=== PATIENT | male | born 1950 | race Caucasian/White ===

== ENCOUNTER → 2017-03-11 | Outpatient (CLI) | payer BC ==
[~2017-03-11] MED LIST: ALL300 PO; AMR2 PO; ASPEC325 PO; CINNAMON; EZET10TA63 PO; FLX10 PO; GLC500 PO; LISI10TA PO; OMEG10007 PO; OXYSR20 PO; SIMV40TA2 PO
[2017-03-11 16:56] LABS: ALT/SGPT 26 U/L (12-78); BLOOD UREA NITROGEN 18 mg/dl (7-18); BUN/CREATININE RATIO 15.3 (10-20); CALCIUM 9.2 mg/dl (8.5-10.1); CARBON DIOXIDE 28 mmol/L (21-32); CHLORIDE 105 mmol/L (98-107); CHOLESTEROL 144 mg/dl (0-200); GLUCOSE 193 mg/dl (70-99); POTASSIUM 3.8 mmol/L (3.5-5.1); SODIUM 138 mmol/L (136-145); TRIGLYCERIDES 87 mg/dl (0-150); VERY LOW DENSITY LIPOPROT CALC 17 mg/dl
[2017-03-11 16:59] LABS: ALB/GLOB RATIO 1.1 (0.9-2); ALKALINE PHOSPHATASE 68 U/L (45-117); AST/SGOT 11 U/L (15-37); CHOLESTEROL/HDL RATIO 2.5; HDL CHOLESTEROL 57 mg/dl; LDL CHOLESTEROL CALCULATED 70 mg/dl
[2017-03-12 07:48] LABS: ESTIMATED AVERAGE GLUCOSE 174 mg/dl; HA1C FLAG Normal (Normal)
--- NOTE | 2017-03-18 11:28 | CODING QUERY MEDICAL NECESSITY ---
CQSUPPORTING DIAGNOSIS NEEDED A supporting diagnosis is required for the test/procedure performed on this patient in order for us to be reimbursed by the patient's insurance. Please provide a supporting diagnosis for the following test/procedure listed below next to the test name along with your signature. *If there is no additional diagnosis for this patient that would support the following test/procedure please document that below next to the test/procedure. Test(s)/Procedure(s) that require a supporting diagnosis: DOS 03/11/17 GLYCATED HEMOGLOBIN TEST Provider Signature: Date: Thank you Maria Gu[facility] Information Management Once completed, please kindly fax back to [phone] For questions please call [phone]
== END | disposition home or self-care (01) ==
LOC: C.LAB1850 15:58
PROVIDERS: ATTEND Nurse Practitioner Adult Health
DX: E78.5 Hyperlipidemia, unspecified (principal); E11.8 Type 2 diabetes mellitus with unspecified complications

== ENCOUNTER → 2017-03-17 | Outpatient (CLI) | payer BC ==
--- NOTE | 2017-03-17 11:21 | DIAGNOSTIC IMAGING REPORT ---
CERVICAL SPINE 2 OR 3 VIEWS CLINICAL HISTORY: Burning sensation of skin. Bilateral upper extremity burning sensation. COMPARISON STUDY: No previous studies for comparison. FINDINGS: There is slight reversal of the normal cervical lordosis. Alignment is otherwise anatomic. Vertebral body heights are maintained. There is moderate to marked disc space narrowing at C5-C6 with moderate disc space narrowing at C4-C5 and C6-C7. There is moderate multilevel facet arthrosis. Chronic deformity of several spinous processes is incidentally noted. IMPRESSION: 1. No cervical spine fracture. 2. Moderate multilevel facet arthrosis and moderate to severe multilevel degenerative disc disease of the cervical spine, most pronounced at C5-C6. Electronically signed by: Ryan Cheng M.D. 03/17/2017 11:20 AM Dictated Date/Time: 03/17/2017 11:18 AM
== END | disposition home or self-care (01) ==
LOC: C.RAD1850 10:51
PROVIDERS: ATTEND Family Medicine
DX: R20.8 Other disturbances of skin sensation (principal); M50.322 Other cervical disc degeneration at C5-C6 level

== ENCOUNTER → 2017-05-26 | Outpatient (CLI) | payer BC ==
--- NOTE | 2017-05-26 11:09 | DIAGNOSTIC IMAGING REPORT ---
R SHOULDER MIN 2 VIEWS ROUTINE, L SHOULDER MIN 2 VIEWS ROUTINE HISTORY: 67 years-old Male M25.511 Chronic pain of both [id number] chronic bilateral shoulder pain COMPARISON: Chest radiograph 05/05/2011 TECHNIQUE: 3 views of the bilateral shoulders FINDINGS: RIGHT: Moderate glenohumeral osteoarthritis with joint space remodeling. Spurring with subchondral sclerosis and subcortical cystic changes are noted involving the greater tuberosity. There is mild to moderate marginal spurring of the AC joint. No acute fracture or dislocation. LEFT: 7 mm linear bone fragment is noted adjacent to the distal clavicle and the AC joint region suggesting chondrocalcinosis or fragmented osteophyte. Mild to moderate acromioclavicular and mild glenohumeral osteoarthritis. There is mild spurring and subcortical cystic change of the greater tuberosity. Lung modi are clear. IMPRESSION: 1. No acute fracture or dislocation of the left or right shoulder. 2. Degenerative changes are seen bilaterally as above, most pronounced within the right glenohumeral joint where there is moderate disease. The above report was generated using voice recognition software. It may contain grammatical, syntax or spelling errors. Electronically signed by: Josue Hussein M.D. 05/26/2017 11:08 AM Dictated Date/Time: 05/26/2017 11:05 AM
== END | disposition home or self-care (01) ==
LOC: C.RAD1850 10:40
PROVIDERS: ATTEND Neuromusculoskeletal Medicine & OMM
DX: M25.511 Pain in right shoulder (principal); M25.512 Pain in left shoulder

== ENCOUNTER → 2017-06-12 | Outpatient (CLI) | payer BC ==
[~2017-06-12] VITALS: Ht 190.5 cm; Wt 105.4 kg
[~2017-06-12] MED LIST changes: +BUPIVACAINE/EPINEPHRINE 0.5% MPF 1:200,000 30 ML VIAL ONE; +EpINEphrine HCL INJ 1 MG/ML 5ML SYRINGE ONE; +HYDROmorphone INJ 1 MG/ML SYR ONE
[2017-06-12 13:02] VITALS: BP 117/83; PULSE 74; Ht 190.5 cm; Wt 105.4 kg
== END | disposition home or self-care (01) ==
LOC: C.NEUR 12:23
PROVIDERS: ATTEND Internal Medicine Pulmonary Disease
DX: R53.83 Other fatigue (principal); R06.83 Snoring; R06.81 Apnea, not elsewhere classified

== ENCOUNTER → 2017-07-18 | Outpatient (CLI) | payer BC ==
[~2017-07-18] MED LIST changes: -BUPIVACAINE/EPINEPHRINE 0.5% MPF 1:200,000 30 ML VIAL ONE; -EpINEphrine HCL INJ 1 MG/ML 5ML SYRINGE ONE; -HYDROmorphone INJ 1 MG/ML SYR ONE
--- NOTE | 2017-07-19 06:44 | PAP/PSG TECHNICIAN REPORT ---
[facility] Bill Collector Polysomnogram Report Study name: None Report date: 07/19/2017 Study date: 07/18/2017 Referring Physician: Stan Owens M.D. Name: JAIDEN SPRINGER Interpreting Physician: Stan Owens M.D. Date of : 1950 Bill Collector: Canid Garner RPSGT. Sex: Male Age: 67 StudyType: PSG Weight: 232.3 lbs Height: 67 years, Height 6' 3" Neck Circum:17INCHES BMI: 29.03 Medications: Allopurinol 300mg, ASA 325mg, Atorvastatin 20mg, Ipratropium [place] 0.03% nasal solution, Ketoconazole 2% cream, Lantus Solostar 100 unit/ml, Metformin HCl 1000mg, Mucinex 600mg, Novolog Flex pen 100unit/ml, Triamcinolone Acetonide 55mcg/act nasal spray, Viagra 50mg, Vit B-12, Vit D 2000unit Patient History Study started on room air with no ETCO2 monitoring in room #8. 67 yr old male here tonight for a possible split psg if his AHI=15 with two hours of sleep. He snores and has witnessed apnea. He never feels rested. His ESS=7/24. His neck circ=17inches Parameters Monitored NPSG: E1-M2, E2-M1, Fp1-M2, Fp2-M1, F3-M2, F4-M2, F4-M1, C3-M2, C4-M2, C4-M1, O1-M2, O2-M2, O2-M1, T3-M2, T4-M1, P3-M2, P4-M1, CHIN1, CHIN2, HR, EKG, Legs, PFLOW, SNOR, FLOW, CFLOW, Tidal Volume, THOR, ABDO, SpO2, PLTH, CPRESS, ETCO2 Wave, ETCO2, pH Sleep Architecture Sleep Stages Time at Lights Off 9:47:15 PM STAGES Time (min.) TST (%) Time at Lights On 5:36:15 AM Wake 108.0 -- Total Recording Time (TRT) 469.00 min. N1 34.0 9 Total Sleep Period (TSP) 450.5 min. N2 205.0 57 Total Sleep Time (TST) 361.0min. N3 33.0 9 Awake Time 108.0 min. REM 89.0 25 Wake after Sleep Onset 89.5 min. Sleep Efficiency (SE) 77 % Sleep Onset Latency (SHAYY) 18.5 min. Number of Stage 1 Shifts None Awakenings 20 Stage Changes 93 Number of REM periods 11 REM 89.0 25 REM Latency 42.5 min. NREM 272.0 75 Body Position Analysis Supine Right Left Side Prone Vertical Total Sleep Time (min.) 218.1 123.5 96.2 219.75 0.0 0.0 Total Sleep Time (%) 39% 34% 27% 61 0% N/A% Total Sleep Time REM (min.) 15.0 22.5 51.5 None 0.0 0.0 Total Sleep Time NREM (min.) 126.3 101.0 44.7 None 0.0 0.0 Intermittent Wake (min.) 76.8 19.2 12.0 None 0.0 0.0 Total Sleep Period (%) 44% None None None None None Arousals Myoclonus (PLM) * Events Count Index Events Count Index Spontaneous 18 3 Events Awake (PLMW) 75 41.7 Respiratory 8 1.3 Events Asleep w/ Arousal (PLMA) 5 0.8 PLM 5 1 Events Asleep w/o Arousal (PLMS) 69 11.5 Snoring 1 0 Total Asleep 74 12.3 Total 32 5 Total 149 19 Respiratory Analysis * CA OA MA CH H RERA Total Count 1 0 0 0 39 0 40 Index 0.2 0.0 0.0 0 6.5 0 6.6 Mean Duration 15.6 0.0 0.0 0.00 33.6 0.0 33.2 Longest Duration 15.6 0.0 0.0 0.00 0.0 0.0 58.5 Respiratory Event Summary Total Supine ~Supine Right Left Prone REM NREM Apneas Count 1 0 1 0 1 N/A 1 0 Index 0.2 0 0 0.0 0.6 N/A 1 0 Hypopneas (4% Desat) Count 39 34 5 2 3 N/A 17 22 Index 6.5 14.4 1 1.0 1.9 N/A 11.5 4.9 Apneas & All Hypopneas Count 40 34 6 2 4 N/A 18 22 Index 6.6 14 2 1 2 N/A 12.1 4.9 Respiratory Events (Facility Attendant+All Hyp+RERA) Count 40 34 6 2 4 N/A 18 22 Index 6.6 14 2 1.0 2.5 N/A 12.1 4.9 Respiratory Related Arousal Count 8 34 0 0 0 N/A 2 6 Index 1.3 3 0 0 0 N/A 1 1 Snoring Analysis Supine Right Left Prone REM NREM Total Snore duration 1.1 min Snores count 50 3 2 N/A 11 44 55 Snore mean duration 1.2 Sec Snores index 21 1 1 N/A 7.4 9.7 9.1 TST with snoring (%) 0.3% Desaturation Event Summary: Minimum %SpO2 Event Count Mean/Min/Max Duration(sec.) Desaturation Index % Time In Bed > 90 41 32.5 / 12.0 / 60.0 55.0 9.6 86 - 90 61 30.4 / 8.5 / 60.0 9.0 87.4 81 - 85 0 N/A 0.0 2.8 76 - 80 0 N/A 0.0 0.2 71 - 75 0 N/A 0.0 0.0 66 - 70 0 N/A 0.0 0.0 61 - 65 0 N/A 0.0 0.0 56 - 60 0 N/A 0.0 0.0 51 - 55 0 N/A 0.0 0.0 < 50 0 N/A 0.0 0.0 Total REM NREM Awake <50% 0.0 min. 0.0 min. 0.0 min. 0.0 min. 51 - 60% 0.0 min. 0.0 min. 0.0 min. 0.0 min. 61 - 70% 0.0 min. 0.0 min. 0.0 min. 0.0 min. 71 - 80% 0.8 min. 0.2 min. 0.6 min. 0.1 min. 81 - 90% 419.3 min. 87.1 min. 263.3 min. 69.0 min. 91 - 100% 44.7 min. 1.7 min. 6.5 min. 36.5 min. Average 88 88 88 90 Minimum SpO2 78 79 78 78 Desaturation Event Index 9.3 14.2 6.0 15.0 # Desat. Events below 89% 69 21 25 23 Time(%) with Saturation below 89% 63.3 13.1 43.5 6.7 Time(min.) with Saturation below 89% 294.3 61.0 202.3 31.0 Time (mins) REM (mins) NREM (mins) % of TST SpO2 Below 90% 47 21 N26 91.3 SpO2 Below 88% 23 0 0 35 Heart Rate Analysis Min (bpm) Max (bpm) Average (bpm) Awake 53 188 66 NREM 51 84 64 REM 53 81 61 Overall 51 84 64 Supplemental O2 Values Minimum O2 level: None Value Start Time End Time Bill Collector Comments Mr. Springer slept in the right, left and supine positions. Cardiac arrhythmia and some limb movements were noted, please see print outs. No bruxism noted. Snoring was noted and scored as a 2 on a scale of 1 through 5. (0=no snoring, 5=snoring loud enough to be heard through a closed door or down the guallpa way) He did not use the restroom during the night. At 12:21 am he qualified for a split night study per order with 2 hours of sleep and an AHI of 15. He was unable to tolerate the cpap and felt claustrophobic so the study was continued as a diagnostic psg. He stated that he slept a little worse than when at home. The final report will be interpreted and signed by a sleep physician. The completed physician report will then be placed in the patient medical record. Therapy (cm H2O) 0 TIB (min.) 469.0 TST (min.) 361.0 Sleep Onset (min.) 18.5 REM Onset From Sleep (min.) 42.5 Sleep Efficiency % 77 Wakefulness (%) 22 Wakefulness (min.) 108.0 NREM 1 (%) 9 NREM 1 (min.) 34.0 NREM 2 (%) 57 NREM 2 (min.) 205.0 NREM 3 (%) 9 NREM 3 (min.) 33.0 REM (%) 25 REM (min.) 89.0 # Arousals 32 Arousal Index 5 # Snore 55 Snore Index 9.1 AHI 6.6 AHI Supine 14 AHI Non-Supine 2 NREM AHI 4.9 REM AHI 12.1 RDI 6.6 # Obstructive Apnea 0 # Central Apnea 1 # Mixed Apnea 0 # Hypopneas 39 RERAs 0 Total Respiratory Events 50 Time Below SpO2 89% (min.) 263.3 Mean NREM SpO2 (%) 88 Mean REM SpO2 (%) 88 Mean Sleep SpO2 (%) 88 Min NREM SpO2 (%) 78 Min REM SpO2 (%) 79 Position Supine (min.) 218.1 Position Non-supine (min.) 219.7 LM Index Sleep 12.3 LM Index NREM 10.1 LM Index REM 18.9 Mean Heart Rate (bpm) 64 Min Heart Rate (bpm) 51
--- NOTE | 2017-07-20 20:39 | POLYSOMNOGRAPH REPORT ---
CLINICAL DATA: A 67-year-old male with BMI of 29 referred by myself and Dr. Gonzalez for evaluation of fatigue, snoring and witnessed apneic episodes. SLEEP ARCHITECTURE: Total sleep period was 450.5 minutes. Total sleep time was 361 minutes divided between 272 minutes of non-REM sleep and 89 minutes of REM sleep. Sleep onset latency was 18.5 minutes. REM latency was foreshortened at 42.5 minutes. Sleep efficiency was reduced at 77%. Wake after sleep onset was 89.5 minutes. Sleep consisted of stage N1 9%, stage N2 57%, stage N3 9%, and REM 25%. AROUSAL DATA: 32 arousals were recorded for an index of 5 per hour. PLM DATA: 74 limb movements during sleep were noted for an index of 12.3 per hour. RESPIRATORY DATA: Mild sleep apnea was documented. The AHI was 6.6. There was 1 central apneic episode, 15.6 seconds in duration. There were 39 hypopneic episodes with a mean duration of 33.6 seconds. OXIMETRY DATA: Nocturnal hypoxemia was seen. Oxygen huan was 78% during REM. The mean saturation was 88%. Time below 88% was 23 minutes. EKG: Heart rates ranged from 51-84 beats per minute. Occasional PVCs were noted. SENIOR COMMERCIAL LOAN OFFICER'S COMMENTS: The patient slept in the right, left, and supine positions. Snoring was mild to moderate, rated 2 on a scale of 1-5. At 12:21 a.m. the patient qualified for a split night study with an AHI of 15 but was unable to tolerate CPAP and felt claustrophobic, so the study was continued as a diagnostic study. Majority of his hypopneic episodes occurred in the first 2 hours of sleep. IMPRESSION: Mild sleep apnea/hypopnea with an AHI of 6.6 with nocturnal hypoxemia. RECOMMENDATIONS: The patient may benefit from use of an oral appliance or weight loss if he cannot tolerate CPAP. Clinical correlation is needed. EDMAR
== END | disposition home or self-care (01) ==
LOC: C.NEUR 21:00
PROVIDERS: ATTEND Internal Medicine Pulmonary Disease
DX: G47.30 Sleep apnea, unspecified (principal); R53.83 Other fatigue; R06.83 Snoring

== ENCOUNTER → 2017-10-02 | Outpatient (CLI) | payer BC ==
[~2017-10-02] VITALS: Ht 190.5 cm; Wt 111.2 kg
[2017-10-02 14:04] VITALS: BP 120/85; PULSE 82; Ht 190.5 cm; Wt 111.2 kg
== END | disposition home or self-care (01) ==
LOC: C.NEUR 12:52
PROVIDERS: ATTEND Internal Medicine Pulmonary Disease
DX: G47.30 Sleep apnea, unspecified (principal)

== ENCOUNTER 2024-01-11 06:17 | Observation (INO) ==
--- NOTE | 2023-10-28 09:54 | Anesthesiology Consultation ---
Date of Service October 28, 2023 Assessment & Plan (1) Encounter for pre-operative examination: Chart Review Chart Review: Acceptable Risk for Surgery and Patient NOT seen in Pre Admission Testing Consults Requested none History Surgery Operation Date: 11/05/23 07:30 Proposed Procedures p Photoselective Vaporization of the Prostate Using the Greenlight Laser - Jose Hatfield, DO Height/Weight Height: 6 ft 3 in Weight: 98.43 kg Allergies Allergy/AdvReac Type Severity Reaction Status Date / Time indomethacin AdvReac Intermediate n/v Verified 10/23/23 13:43 Medications Home Medications Medication Instructions Recorded Confirmed Last Taken multivitamin with minerals (Men's 1 tab PO QAM 04/07/19 10/23/23 Unknown One Daily tablet) aspirin 325 mg tablet 325 mg PO QAM 04/27/19 10/23/23 Unknown allopurinol 300 mg tablet 300 mg PO QAM 05/02/19 10/23/23 Unknown metformin 1,000 mg tablet 1,000 mg PO BID 05/02/19 10/23/23 Unknown atorvastatin 10 mg tablet 10 mg PO HS 04/30/21 10/23/23 Unknown semaglutide 1 mg/dose (2 mg/1.5 2 mg subcut WK 04/30/21 10/23/23 Unknown mL) subcutaneous pen injector (Ozempic) tadalafil 5 mg tablet 5 mg PO DAILY PRN sexual activity 10/21/21 10/23/23 Unknown #30 tabs finasteride 5 mg tablet 5 mg PO HS 04/21/22 10/23/23 Unknown lisinopril 5 mg tablet 2.5 mg PO QAM 04/21/22 10/23/23 Unknown gabapentin 400 mg capsule 400 mg PO UD 04/29/22 10/23/23 Unknown blood-glucose meter,continuous #1 ea 01/16/23 09/18/23 Unknown cholecalciferol (vitamin D3) 25 1,000 units PO HS 10/23/23 10/23/23 Unknown mcg (1,000 unit) capsule famotidine 20 mg tablet (Pepcid) 20 mg PO DAILY PRN gerd 10/23/23 10/23/23 Unknown insulin glargine 100 unit/mL (3 22 unit subcut HS 10/23/23 10/23/23 Unknown mL) subcutaneous pen (Lantus Solostar U-100 Insulin) tamsulosin 0.4 mg capsule 0.4 mg PO HS 10/23/23 10/23/23 Unknown Past Medical History Medical History Hx of gout GERD (gastroesophageal reflux disease) Hiatal hernia Post traumatic stress disorder Hx of migraines Myocardial Infarction ? 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 name Mild sleep apnea cpap Obesity (BMI 30.0-34.9) Vitamin D deficiency Male erectile disorder of organic origin Past Family History Family History Mother Brain cancer Brother Bladder cancer Melanoma Father Myocardial infarction Other Cancer Coronary heart disease Diabetes No family history of adverse response to anesthesia Denies family history of Colon cancer Ovarian cancer Prostate cancer Breast cancer Past Surgical History Surgical History History of esophagogastroduodenoscopy (EGD) H/O foot surgery rt History of carpal tunnel release rt/left H/O elbow surgery left Hx of vasectomy History of colonoscopy History of appendectomy History of tooth extraction History of tonsillectomy History of nasal cauterization x 2 (Dr. Finley) H/O metal removed from eye History of cardiac cath no stents over 10 years ago>[facility] History of facial surgery jaw surgery>no locking History of knee replacement rt S/P shoulder replacement rt Social History Smoking Status: Never smoker Do You Dip or Chew Tobacco: No Hx Alcohol Use: Yes Alcohol type: beer alcohol intake frequency: 0-2 drinks per day Alcohol Intake Frequency Comment: 1 beer per day on average Hx Substance Use: No substance use type: does not use Testing Electrocardiogram Date: 07/10/23 Findings: + NSR @ possible anteroseptal infarct
[2024-01-11] MEDS: LR 15ML/HR IV SCH ×2 (06:45)
[2024-01-11] MEDS ORDERED: ONDANSETRON INJ 2 MG/ML 2 ML VIAL IV PRN (06:53)
[2024-01-11] MEDS ORDERED: fentaNYL citrate PF 100 MCG/2 ML VIAL IV PRN (06:53)
[2024-01-11] MEDS ORDERED: ATROPINE SULFATE 0.1 MG/ML 10ML SYR IV PRN (06:53)
[2024-01-11] MEDS ORDERED: ePHEDrine sulfate 50 MG/ML AMP IV PRN (06:53)
--- NOTE | 2024-01-11 07:06 | History & Physical Report ---
Date of Service January 11, 2024 Assessment & Plan (1) BPH with obstruction/lower urinary tract symptoms: Plan Risks and benefits discussed at length for procedure. These include bleeding, infection, injury to surrounding tissues or organs, and risks associated with anesthesia. Patient states understanding and agrees to proceed. Will sign consent and proceed. Plan for Greenlight Photovaporization of Prostate History of Present Illness Primary Care Provider: Bobbi Gonzalez MD Patient here for procedure. No changes in medical issues. No major changes in urinary issues. Continued issues and concerns. No change in pain or discomfort. No severe fevers or chills. No chest pain or shortness of breath. Risks and benefits discussed at length for procedure. These include bleeding, infection, injury to surrounding tissues or organs, and risks associated with anesthesia. Patient and/or family states understanding and agrees to proceed. Consent and supporting information completed. Allergies Allergy/AdvReac Type Severity Reaction Status Date / Time indomethacin AdvReac Intermediate n/v Verified 01/11/24 06:32 Home Medications Medication Instructions Recorded Confirmed Type multivitamin with minerals (Men's 1 tab PO QAM 04/07/19 01/11/24 History One Daily tablet) aspirin 325 mg tablet 325 mg PO QAM 04/27/19 01/11/24 History allopurinol 300 mg tablet 300 mg PO QAM 05/02/19 01/11/24 History metformin 1,000 mg tablet 1,000 mg PO BID 05/02/19 01/11/24 History atorvastatin 10 mg tablet 10 mg PO HS 04/30/21 01/11/24 History semaglutide 1 mg/dose (2 mg/1.5 2 mg subcut WK 04/30/21 01/11/24 History mL) subcutaneous pen injector (Ozempic) tadalafil 5 mg tablet 5 mg PO DAILY PRN sexual activity 10/21/21 01/11/24 Rx #30 tabs finasteride 5 mg tablet 5 mg PO HS 04/21/22 01/11/24 History lisinopril 5 mg tablet 2.5 mg PO QAM 04/21/22 01/11/24 History gabapentin 400 mg capsule 400 mg PO UD 04/29/22 01/11/24 History blood-glucose meter,continuous #1 ea 01/16/23 09/18/23 Rx cholecalciferol (vitamin D3) 25 1,000 units PO HS 10/23/23 01/11/24 History mcg (1,000 unit) capsule famotidine 20 mg tablet (Pepcid) 20 mg PO DAILY PRN gerd 10/23/23 01/11/24 History insulin glargine 100 unit/mL (3 22 unit subcut HS 10/23/23 01/11/24 History mL) subcutaneous pen (Lantus Solostar U-100 Insulin) tamsulosin 0.4 mg capsule 0.4 mg PO HS 10/23/23 01/11/24 History Past Med/Surg History Problem List (Updated 01/11/24 @ 07:05 by Jose Hatfield DO) BPH with obstruction/lower urinary tract symptoms Encounter for pre-operative examination Nocturnal hypoxia Peyronie's disease (Acute) Dyslipidemia (Acute) Medical History Hx of gout GERD (gastroesophageal reflux disease) Hiatal hernia Post traumatic stress disorder Hx of migraines Myocardial Infarction ? 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 name Mild sleep apnea cpap Obesity (BMI 30.0-34.9) Vitamin D deficiency Male erectile disorder of organic origin Surgical History History of esophagogastroduodenoscopy (EGD) H/O foot surgery rt History of carpal tunnel release rt/left H/O elbow surgery left Hx of vasectomy History of colonoscopy History of appendectomy History of tooth extraction History of tonsillectomy History of nasal cauterization x 2 (Dr. Finley) H/O metal removed from eye History of cardiac cath no stents over 10 years ago>[facility] History of facial surgery jaw surgery>no locking History of knee replacement rt S/P shoulder replacement rt Family History Mother Brain cancer Brother Bladder cancer Melanoma Father Myocardial infarction Other Cancer Coronary heart disease Diabetes No family history of adverse response to anesthesia Denies family history of Colon cancer Ovarian cancer Prostate cancer Breast cancer Social History Smoking Status: Never smoker Second Hand Exposure: No; Do You Dip or Chew Tobacco: No; Tobacco Cessation Education Requested by Patient: No Hx Alcohol Use: Yes Alcohol type: beer Alcohol Intake Frequency: 2-3 x/Week Hx Substance Use: No Preferred Language: Upper Sorbian Communication Ability: Effective Visual Impairment: No Limitations Hearing Ability: Hard of Hearing Warehouse Director Required: No Beliefs That Will Affect Care: None marital status: Current Living Situation: Spouse current occupational status: employed and retired current occupation: Self How many Children do You have: 2 Other Information That Helps Us Care for You: No Feels Safe at Home: Yes Safety Concerns: Feels Safe At This Time Childhood Exposure to Second-Hand Smoke: Yes Diet: regular caffeine: Yes during the past year weight has: remained stable Dental Care, Regularly: Yes Physical Activity Frequency: Daily Seatbelt Use: always Sunscreen Use: Yes Assistive Devices: CPAP, Glasses and Hearing Aid - Bilateral Assistive Devices Comment: reading/driving glasses Review of Systems All systems reviewed & are unremarkable except as noted in HPI & below Physical Exam Physical Exam: General: Alert/Arousable. No Acute illness. . HEENT: Inspection normal. Normal inspection of face. Normal inspection of neck. Psychologic: Normal affect/No change in mentation. Respiratory: No use of accessory muscles. No respiratory changes or exacerbation or changes with tachypnea or dyspnea. Cardiovascular: No tachycardia Skin: [place] and Dry. No new rashes or visible lesions. Abdomen: Normal inspection. No guarding. Results & Data Vital Signs (Past 12 Hours) Vital Signs Temp Pulse Resp BP Pulse Ox O2 Del Method 01/11/24 06:35 36.5 C 84 20 133/85 94 Room Air PG Care Time/CCT Total # of Minutes Spent Total Time Spent with Patient: Total time spent is greater than 50% in coordination of care (as documented) at patient's floor/unit and/or counseling patient: Coding Level of Care Code None Diagnoses BPH with obstruction/lower urinary tract symptoms N40.1; N13.8
[2024-01-11] MEDS ORDERED: MIDAZOLAM HCL 1 MG/ML 2ML VIAL ONE (08:26)
[2024-01-11] MEDS ORDERED: PROPOFOL IV EMULSION 10 MG/ML 20 ML VIAL IV ONE (08:26)
[2024-01-11] MEDS ORDERED: LIDOCAINE 2% 2 ML VIAL/AMP(20MG/ML) INFIL ONE (08:26)
[2024-01-11] MEDS ORDERED: fentaNYL citrate PF 100 MCG/2 ML VIAL ONE ×2 (08:26→10:13)
[2024-01-11] MEDS: ceFAZolin 2000MG 2,000 MG/15 ML SYR IV SCH ×2 (09:28→18:20)
[2024-01-11] MEDS ORDERED: PHENAZOPYRIDINE HCL 200 MG TAB PO PRN (09:33)
[2024-01-11] MEDS ORDERED: oxyCODONE/ACETAMINOPHEN 5mg/325mg TAB PO PRN (09:33)
[2024-01-11] MEDS ORDERED: MoRPHine SULFATE 2 MG/ML CARP IV PRN (09:33)
[2024-01-11] MEDS ORDERED: MAG SULFATE 50% 1GM/2ML VIAL IV ONE (09:37)
--- NOTE | 2024-01-11 10:58 | Operative Report ---
PG Post Operative Report Pre & Post Diagnosis Operation Date: 01/11/24 08:00 Pre-Op Diagnosis: Benign Prostatic Hyperplasia with Obstruction/Lower Urinary Tract Symptoms Post-Op Diagnosis: Benign Prostatic Hyperplasia with Obstruction/Lower Urinary Tract Symptoms I identified the patient and participated in the time-out.: Yes Procedure Operation Date: 01/11/24 08:00 Actual Procedures p Photoselective Vaporization of the Prostate and Enucleation of Prostate Using the Greenlight Laser(Not Applicable) - Jose Hatfield DO Surgeon Jose Hatfield, II, DO One Piece Expansion Maker Hand None Estimated Blood Loss 5 Findings Consistent with Post-Op Diagnosis Large Prostate with obstruction. Large median lobe enucleated. Bilateral Lateral lobe enlargement. 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 Drains 22Fr [address] Catheter Anesthesia Type General Complications none Disposition Disposition: Recovery Room Indications Patient with obstruction due to prostate enlargement. Risks and benefits discussed at length. Description of Procedure Patient was consented and brought back to the operating room. Patient was placed under anesthesia in the supine position and moved to the dorsal lithotomy position. Patient was prepped and draped in the regular sterile fashion. A time out was completed. A 30degree Cystoscope was placed into the bladder and the entire bladder was examined. The UO's were identified as well as the bladder neck, trigone, dome, and the other important landmarks. The prostatic urethra and large lobes/adenoma was assessed and the veru and bladder neck identified and area/size was assessed. The cystoscope with laser bridge and the Greenlight laser fiber were selected. Starting at the 5 and 7 o'clock positions, a channel was created from bladder neck to the veru. A channel was further formed between the two areas by enucleating the median lobe out from the 7 back to the 5 o'clock position. Adenoma pieces were enucleated and displaced into the bladder. No major bleeding or areas of concern. The resection then started at the 1 and 11 oclock positions and swept down to the channel vaporizing down to capsule fibers. All bleeding was controlled. The Specimen was removed and sent for analysis. The resection bed and any bleeding areas were fulgurated/cauterized and the entire area inspected. All bleeding was controlled. The bladder was inspected a final time. The bladder was emptied and irrigated. All specimen and debris was removed. The scope was removed with the bladder partially full. A catheter was placed and balloon elevated. This was easily irrigated. The patient was cleaned, aroused from anesthesia, and transferred to the pacu in stable condition having tolerated the procedure well with no complications. I was present and participated in all aspects of the procedure. The patient will be monitored in the PACU until transferred. Plan to monitor post op as observation. Will plan to remove catheter in 5-7 days. I attest to the content of the Intraoperative Record and any orders documented therein. Any exceptions are noted below.
[2024-01-11] MEDS ORDERED: DEXAMETHASONE SOD INJ 4 MG/ML VIAL ONE (10:59)
[2024-01-11] MEDS ORDERED: ONDANSETRON INJ 2 MG/ML 2 ML VIAL ONE (10:59)
[2024-01-11 11:28] LABS: Basophils # (auto) 0.06 K/uL (0.00-0.20); Basophils % (auto) 0.7 %; Eosinophils # (auto) 0.36 K/uL (0.00-0.50); Eosinophils % (auto) 4.4 %; Hematocrit (blood only) 44.1 % (42.0-52.0); Hemoglobin 14.6 g/dl (14.0-18.0); Immature Granulocytes # (auto) 0.05 K/uL (0.01-0.20); Immature Granulocytes % (auto) 0.6 %; Lymphocytes # (auto) 2.25 K/uL (1.20-3.40); Lymphocytes % (auto) 27.7 %; Mean Corpuscular Hemoglobin 29.1 pg (25.0-34.0); Mean Corpuscular Hgb Conc 33.1 g/dL (32.0-36.0); Mean Corpuscular Volume 87.8 fL (80.0-100.0); Mean Platelet Volume 11.1 fL (9.4-12.4); Monocytes # (auto) 0.44 K/uL (0.11-0.59); Monocytes % (auto) 5.4 %; Neutrophils # (auto) 4.96 K/uL (1.40-6.50); Neutrophils % (auto) 61.2 %; Platelet Count 249 K/uL (130-400); RDW Coefficient of Variation 13.5 % (11.5-14.5); RDW Standard Deviation 43.2 fL (36.4-46.3); Red Blood Count 5.02 M/uL (4.70-6.10); White Blood Count 8.12 K/ul (4.8-10.8)
[2024-01-11] MEDS ORDERED: ePHEDrine sulfate 50 MG/ML AMP ONE (11:37)
[2024-01-11 11:44] LABS: BUN Creatinine Ratio 17.1 (10-20); Creatinine Clr Calc Pharmacy 101.9 ml/min; Est GFR (African American) 104.2 ml/min; Est GFR (Non-African American) 89.9 ml/min; Potassium 4.7 mmol/L (3.5-5.1)
--- NOTE | 2024-01-11 12:10 | Anesthesiology Progress Note ---
Date of Service January 11, 2024 Anesthesia Post Procedure Vital Signs Vital Signs: Temp Pulse Pulse Resp BP Pulse Ox O2 Del Method 01/11/24 11:55 73 10 L 117/72 95 Nasal Cannula 01/11/24 11:45 36.5 C 74 12 109/79 94 Nasal Cannula 01/11/24 11:35 78 19 107/85 94 Nasal Cannula 01/11/24 11:25 83 14 119/70 93 Nasal Cannula 01/11/24 11:15 81 17 120/72 94 Room Air 01/11/24 11:07 36.0 C L 87 23 122/77 94 Room Air 01/11/24 06:35 36.5 C 84 20 133/85 94 Room Air O2 Flow Rate 01/11/24 11:55 2 01/11/24 11:45 2 01/11/24 11:35 2 01/11/24 11:25 2 01/11/24 11:15 01/11/24 11:07 01/11/24 06:35 Transfer of Care Handoff Completed per policy Notes Mental Status: alert / awake / arousable Patient Amnestic to Procedure: Yes Nausea / Vomiting: adequately controlled Pain: adequately controlled Airway Patency, RR, SpO2: stable & adequate BP & HR: stable & adequate Hydration State: stable & adequate Anesthetic Complications: no major complications apparent and Pt Satisfied with anesthetic care
[2024-01-11] MEDS ORDERED: PHARMACY GLYCEMIC MGMT CONSULT PRN (15:03)
--- NOTE | 2024-01-11 15:45 | Pharmacy Report ---
Pharmacy Glycemic Short Note 2 - Date of Service January 11, 2024 - Glycemic Short BSG Results (Last 24 hours): 01/11/24 01/11/24 01/11/24 06:35 11:10 11:14 Glucose 174 H POC Glucose 150 H 157 H 01/11/24 13:25 Glucose POC Glucose 179 H OUTPATIENT ANTIDIABETIC REGIMEN: * Lantus 22 units SC HS * Metformin * Semaglutide * HbA1c 8.7% on 10/19/23 ASSESSMENT: * 73 yo M w T2DM now POD #0 s/p prostate surgery who received IV dexamethasone periop. * Will slightly increase home Lantus dose x1 today 2nd steroids plus lower dose administered yesterday PM preop. Plan to change back to home regimen tomorrow PM * Will initiate Novolog in-lieu of home medications and dose slightly more aggressively than moderate stress estimate 2nd dexamethasone. Anticipate loosening tomorrow or the next day, based on trend in BSG's PLAN FOR INPATIENT GLYCEMIC CONTROL: * Hold outpatient oral diabetes medications * Basal insulin * Lantus 25 units SQ x1 now then 22 units HS ongoing * Bolus insulin * NovoLog per scale ACHS or Q6hrs while NPO * Goal Range: Low 110 mg/dL - High 140 mg/dL * Correction Factor: 20 mg/dL/unit * Nutritional / Prandial insulin per carb ratio of 1 unit per 6 grams CHO consumed
[2024-01-11] MEDS: INSULIN ASPART PER UNIT CHARGE SC SCH (17:08)
[2024-01-11] MEDS: LANTUS PER UNIT CHARGE SC ONE (17:08)
--- NOTE | 2024-01-11 17:43 | Hospitalist Consultation ---
Date of Consultation January 11, 2024 Assessment & Plan (1) BPH with obstruction/lower urinary tract symptoms: per primary service (2) Hypertension, benign essential, goal below 140/90: BP is slightly on the lower side. will monitor cbc\\hold BP meds (3) Controlled type 2 diabetes mellitus with neurologic complication, with long- term current use of insulin: consulted glycemic control. check blood suagr ACHS (4) Hyperlipidemia: resume home meds Plan dvt prophylaxis per primary service. History of Present Illness Reason for Consultation: medical management Attending Physician: Jose Hatfield, II, DO History of Present Illness 73 yo male is admitted for a BPH and lower extremity symptoms. Patient will have Photoselective Vaporization of the Prostate and Enucleation of Prostate Using the Greenlight Laser. Medical consult ordered for medical management. Patient has diabetes, hyperlipidemia.No acute medical problems, Allergies Allergy/AdvReac Type Severity Reaction Status Date / Time indomethacin AdvReac Intermediate n/v Verified 01/13/24 10:44 Home Medications Medication Instructions Recorded Confirmed Type multivitamin with minerals (Men's 1 tab PO QAM 04/07/19 01/13/24 History One Daily tablet) aspirin 325 mg tablet 325 mg PO QAM 04/27/19 01/13/24 History allopurinol 300 mg tablet 300 mg PO QAM 05/02/19 01/13/24 History metformin 1,000 mg tablet 1,000 mg PO BID 05/02/19 01/13/24 History atorvastatin 10 mg tablet 10 mg PO HS 04/30/21 01/13/24 History semaglutide 1 mg/dose (2 mg/1.5 2 mg subcut WK 04/30/21 01/13/24 History mL) subcutaneous pen injector (Ozempic) tadalafil 5 mg tablet 5 mg PO DAILY PRN sexual activity 10/21/21 01/13/24 Rx #30 tabs finasteride 5 mg tablet 5 mg PO HS 04/21/22 01/13/24 History lisinopril 5 mg tablet 2.5 mg PO QAM 04/21/22 01/13/24 History gabapentin 400 mg capsule 400 mg PO UD 04/29/22 01/13/24 History blood-glucose meter,continuous #1 ea 01/16/23 09/18/23 Rx cholecalciferol (vitamin D3) 25 1,000 units PO HS 10/23/23 01/13/24 History mcg (1,000 unit) capsule famotidine 20 mg tablet (Pepcid) 20 mg PO DAILY PRN gerd 10/23/23 01/13/24 History insulin glargine 100 unit/mL (3 22 unit subcut HS 10/23/23 01/13/24 History mL) subcutaneous pen (Lantus Solostar U-100 Insulin) tamsulosin 0.4 mg capsule 0.4 mg PO HS 10/23/23 01/13/24 History cephalexin 500 mg capsule 500 mg PO BID 5 days #10 caps 01/12/24 01/13/24 Rx Patient History Medical History Hx of gout GERD (gastroesophageal reflux disease) Hiatal hernia Post traumatic stress disorder Hx of migraines Myocardial Infarction ? year "long time ago" Hyperlipidemia Arthritis Controlled type 2 diabetes mellitus with neurologic complication, with long-term current use of insulin Diabetic peripheral neuropathy Hypertension, benign essential, goal below 140/90 follows with [facility] ? name Mild sleep apnea cpap Obesity (BMI 30.0-34.9) Vitamin D deficiency Male erectile disorder of organic origin Surgical History History of esophagogastroduodenoscopy (EGD) H/O foot surgery rt History of carpal tunnel release rt/left H/O elbow surgery left Hx of vasectomy History of colonoscopy History of appendectomy History of tooth extraction History of tonsillectomy History of nasal cauterization x 2 (Dr. Finley) H/O metal removed from eye History of cardiac cath no stents over 10 years ago>[facility] History of facial surgery jaw surgery>no locking History of knee replacement rt S/P shoulder replacement rt Family History Mother Brain cancer Brother Bladder cancer Melanoma Father Myocardial infarction Other Cancer Coronary heart disease Diabetes No family history of adverse response to anesthesia Denies family history of Colon cancer Ovarian cancer Prostate cancer Breast cancer Social History Smoking Status: Never smoker Second Hand Exposure: No; Do You Dip or Chew Tobacco: No; Hx Alcohol Use: Yes Alcohol type: beer Alcohol Intake Frequency: 2-3 x/Week Hx Substance Use: No Preferred Language: Nepali Communication Ability: Effective Visual Impairment: No Limitations Hearing Ability: Hard of Hearing Licsw Required: No Beliefs That Will Affect Care: None marital status: Current Living Situation: Spouse current occupational status: employed and retired current occupation: Self How many Children do You have: 2 Feels Safe at Home: Yes Childhood Exposure to Second-Hand Smoke: Yes Diet: regular caffeine: Yes during the past year weight has: remained stable Dental Care, Regularly: Yes Physical Activity Frequency: Daily Seatbelt Use: always Sunscreen Use: Yes Assistive Devices: CPAP Review of Systems Constitutional: no fever and no body aches Eyes: no blind spots Ear, Nose, Mouth, Throat: no ear pain Respiratory: no cough Cardiovascular: no chest pain and no radiating jaw, neck or arm pain Gastrointestinal: no abdominal pain Genitourinary: + urinary hesitancy Musculoskeletal: no back pain Integumentary: no acne Neurologic: no gait abnormality Psychiatric: no behavioral changes Endocrine: no fatigue Hematologic / Lymphatic: no easy bleeding Allergy / Immunological: no GI upset with certain foods Physical Exam Constitutional: WD/WN, vitals as above Eyes: PERRL, conjunctivae normal, anicteric sclerae ENMT: external ear and nose normal, oropharynx normal Neck: trachea midline, no thyromegaly Respiratory: normal respiratory effort, lungs clear to auscultation Cardiovascular: RRR, no murmur, no edema Musculoskeletal: no cyanosis or clubbing, extremities motor strength 5/5 Skin: no rashes, warm and dry Psychiatric: A+Ox3, euthymic affect Results & Data Results & Data Vital Signs (Past 12 Hours) Vital Signs Temp Pulse Pulse Resp BP Pulse Ox O2 Del Method 01/11/24 15:49 36.5 C 74 16 128/70 93 Room Air 01/11/24 14:51 36.4 C L 81 16 122/72 92 Room Air 01/11/24 13:57 72 16 122/72 93 Room Air 01/11/24 13:21 36.5 C 79 18 125/82 92 Room Air 01/11/24 12:50 36.6 C 80 16 125/76 93 Room Air 01/11/24 12:25 79 20 108/67 95 Nasal Cannula 01/11/24 12:10 71 14 115/70 95 Nasal Cannula 01/11/24 11:55 73 10 L 117/72 95 Nasal Cannula 01/11/24 11:45 36.5 C 74 12 109/79 94 Nasal Cannula 01/11/24 11:35 78 19 107/85 94 Nasal Cannula 01/11/24 11:25 83 14 119/70 93 Nasal Cannula 01/11/24 11:15 81 17 120/72 94 Room Air 01/11/24 11:07 36.0 C L 87 23 122/77 94 Room Air 01/11/24 06:35 36.5 C 84 20 133/85 94 Room Air O2 Flow Rate 01/11/24 15:49 01/11/24 14:51 01/11/24 13:57 01/11/24 13:21 01/11/24 12:50 01/11/24 12:25 2 01/11/24 12:10 2 01/11/24 11:55 2 01/11/24 11:45 2 01/11/24 11:35 2 01/11/24 11:25 2 01/11/24 11:15 01/11/24 11:07 01/11/24 06:35 PG Care Time/CCT Total # of Minutes Spent Total Time Spent with Patient: Total time spent is greater than 50% in coordination of care (as documented) at patient's floor/unit and/or counseling patient: Coding Level of Care Code 09636 IN/OBS CONSULT LVL 3,45M Diagnoses BPH with obstruction/lower urinary tract symptoms N40.1; N13.8 Hypertension, benign essential, goal below 140/90 I10 Controlled type 2 diabetes mellitus with neurologic complication, with long-term current use of insulin E11.49; Z79.4 Hyperlipidemia E78.5
[2024-01-11] MEDS: SODIUM CHLORIDE 0.9% 1,000 ML IV SCH (18:19)
[2024-01-12] MEDS ORDERED: DEXTROSE 50% 50 ML SYRINGE IV PRN (08:15)
[2024-01-12] MEDS ORDERED: GLUCAGON FOR INJ 1 MG VIAL IM PRN (08:15)
[2024-01-12] MEDS ORDERED: GLUCOSE 10 TAB/TUBE PO PRN (08:15)
[2024-01-12] MEDS ORDERED: CARBOHYDRATES FOR HYPOGLYCEMIA PO PRN (08:15)
[2024-01-12] MEDS ORDERED: GLUCOSE 40% GEL 15 GM TUBE PO PRN (08:15)
--- NOTE | 2024-01-12 09:07 | Urology Progress Note ---
Date of Service January 12, 2024 Assessment & Plan (1) BPH with obstruction/lower urinary tract symptoms: Plan: - Pt POD#1 s/p Greenlight vaporization of prostate with Dr. Hatfield - Doing well, progressing as expected - Afebrile with stable vitals - Tolerating PO diet - 3 way Cormier catheter intact, patent and draining clear yellow urine with CBI on slow - CBI clamped this morning, nursing aware - will reassess later this AM - Maintain Cormier catheter - Anticipate home with Cormier catheter later today presuming urine appropriate and he continues to progress as expected - Expected clinical course reviewed, all questions answered - Will arrange outpatient follow-up with our service for voiding trial Admission and Anticipated Discharge Date Admission Date: January 11, 2024 Subjective Patient seen and examined at bedside this morning He is awake and eating breakfast No issues overnight, though reports he slept poorly Cormier patent and draining clear yellow urine with CBI on slow CBI clamped at 0805 Denies fever, chills, nausea or vomiting Review of Systems Constitutional: as per Subjective / HPI Gastrointestinal: as per Subjective / HPI Genitourinary: + as per Subjective / HPI Physical Exam Constitutional: well developed and well nourished; no acute distress Respiratory: normal respiratory effort; no respiratory distress and no labored breathing Gastrointestinal (Abdomen): Inspection/Auscultation: abdomen normal to inspection Musculoskeletal: Head/Neck/Chest: normocephalic Neurologic: moves all extremities and awake Psychiatric: Orientation: alert and oriented x 3 Genitourinary: Cormier patent and draining clear yellow urine with CBI on slow, CBI clamped at bedside this morning Results & Data Vital Signs (Past 12 Hours) Vital Signs Temp Pulse Pulse Resp BP Pulse Ox O2 Del Method 01/12/24 07:05 36.4 C L 75 18 112/68 94 Room Air 01/12/24 03:08 36.8 C 55 L 16 119/77 93 Room Air 01/12/24 00:06 72 112/63 01/11/24 22:41 36.7 C 75 18 93/53 L 93 Room Air PG Care Time/CCT Total # of Minutes Spent Total Time Spent with Patient: Total time spent is greater than 50% in coordination of care (as documented) at patient's floor/unit and/or counseling patient: Coding Level of Care Code None Diagnoses BPH with obstruction/lower urinary tract symptoms N40.1; N13.8
--- NOTE | 2024-01-12 11:57 | Discharge Summary ---
Date of Service January 12, 2024 Admission HPI Per Admitting Provider Patient here for procedure. No changes in medical issues. No major changes in urinary issues. Continued issues and concerns. No change in pain or discomfort. No severe fevers or chills. No chest pain or shortness of breath. Risks and benefits discussed at length for procedure. These include bleeding, infection, injury to surrounding tissues or organs, and risks associated with anesthesia. Patient and/or family states understanding and agrees to proceed. Consent and supporting information completed. Admission Exam Per Admitting Provider General: Alert/Arousable. No Acute illness. HEENT: Inspection normal. Normal inspection of face. Normal inspection of neck. Psychologic: Normal affect/No change in mentation. Respiratory: No use of accessory muscles. No respiratory changes or exacerbation or changes with tachypnea or dyspnea. Cardiovascular: No tachycardia Skin: Brock and Dry. No new rashes or visible lesions. Abdomen: Normal inspection. No guarding. Principal Diagnosis BPH with obstruction/lower urinary tract symptoms Discharge Exam Constitutional well developed and well nourished; no acute distress Respiratory normal respiratory effort; no respiratory distress and no labored breathing Gastrointestinal (Abdomen) Inspection/Auscultation: abdomen normal to inspection Musculoskeletal Head/Neck/Chest: normocephalic Neurologic moves all extremities and awake Psychiatric Orientation: alert and oriented x 3 Genitourinary Cormier with clear urine Discharge Data Allergies Allergy/AdvReac Type Severity Reaction Status Date / Time indomethacin AdvReac Intermediate n/v Verified 01/11/24 06:32 Consultations 01/11/24 09:33 Consult Hospitalist Routine Procedures Performed Operation Date: 01/11/24 08:00 Actual Procedures p Photoselective Vaporization of the Prostate Using the Greenlight Laser(Not Applicable) - Jose Hatfield, DO Hospital Course (1) BPH with obstruction/lower urinary tract symptoms: - Pt POD#1 s/p Greenlight vaporization of prostate with Dr. Hatfield - Doing well, progressing as expected - Afebrile with stable vitals - Tolerating PO diet - 3 way Cormier catheter intact, patent and draining clear yellow urine with CBI on slow - CBI clamped this morning, nursing aware - will reassess later this AM - Maintain Ocrmier catheter - Anticipate home with Cormier catheter later today presuming urine appropriate and he continues to progress as expected - Expected clinical course reviewed, all questions answered - Will arrange outpatient follow-up with our service for voiding trial Total Time Total Time Spent Total Time Spent (In Minutes): 29 Discharge Plan Discharge Items Patient Disposition: Home - Self-Care Reason For Visit: Benign Prostatic Hyperplasia with Obstruction/Lowe Discharge Diagnosis: Benign prostatic hyperplasia with obstruction/lower urinary tract symptoms Activity: Per Instructions section Lifting: No more than 25 pounds Bathing Comment: Okay to shower after discharge, no tub bath or soaking Sexual Activity: Wait until after follow-up appointment Exercise/Sports: Wait until after follow-up appointment Driving/Machine Use: Resume 1 day after discharge Non-emergency contact: Surgeon and Urologist Call non-emergency contact if: your pain is not controlled, you have a fever and your temperature is above 101 Follow-up/Referrals: Bobbi Gonzalez MD [Primary Care Provider] - 01/20/24 11:20 am [facility],Nurse [FAKE FOR SCHEDULES] - 01/19/24 9:45 am Diet: Regular Addtl Attending Provider Instructions: Please take all medications as prescribed and keep all follow-ups as scheduled. Please call our office at [phone] with any questions, concerns or need to reschedule appointments for any reason. We are happy to assist you. Tips for your recovery at home: Dont be alarmed by brownish or reddish blood or clots in your urine. This is a result of the procedure. This may occur off and on for weeks to months after the procedure but should continue to improve. Drink plenty of fluids during the day (enough to keep your urine very light colored). This will help keep a healthy flow of urine. Do not lift >25 lbs until your followup Avoid constipation. Please use a stool softener (Colace) for the first two weeks after your procedure Be sure to finish the antibiotics as prescribed. If you go home with a catheter, please wash tubing where it enters your body twice daily with mild soap (Dove or Dial). Once your catheter is removed, expect some blood in your urine and some burning when you urinate. You should have an appointment to have this removed, if you do not please call our office to arrange. Pending Studies at Discharge: Yes Stand-Alone Forms: [facility] [place] [employer], Smoking Cessation Medications and DC Order Prescriptions: New cephalexin 500 mg capsule 500 mg PO BID 5 Days Qty: 10 0RF Continued allopurinol 300 mg tablet 300 mg PO QAM metformin 1,000 mg tablet 1,000 mg PO BID tadalafil 5 mg tablet 5 mg PO DAILY PRN (Reason: sexual activity) Qty: 30 0RF Rx Instructions: administer approximately 30min before sexual activity; do not use more than 1 dose per 24hrs finasteride 5 mg tablet 5 mg PO HS lisinopril 5 mg tablet 2.5 mg PO QAM multivitamin with minerals [Men's One Daily] tablet 1 tab PO QAM aspirin 325 mg tablet 325 mg PO QAM atorvastatin 10 mg tablet 10 mg PO HS Ozempic 1 mg/dose (2 mg/1.5 mL) pen injector 2 mg subcut WK Patient Comments: takes thursday or thu gabapentin 400 mg capsule 400 mg PO UD Patient Comments: 400mg qam/800mg hs Rx Instructions: 400mg in am; 800mg at night (DME) blood-glucose meter,continuous Misc See Rx Instructions .Route Qty: 1 0RF Rx Instructions: As directed insulin glargine [Lantus Solostar U-100 Insulin] 100 unit/mL (3 mL) Insulin Pen 22 unit SUBCUT HS Rx Instructions: "took 12 units last night as directed" tamsulosin 0.4 mg capsule 0.4 mg PO HS cholecalciferol (vitamin D3) 1,000 unit capsule 1,000 units PO HS famotidine [Pepcid] 20 mg Tablet 20 mg PO DAILY PRN (Reason: gerd) Discharge Orders: Discharge Order (Routine); Ordered 01/12/24 Ordered By: Lisy Harris/Other Patient Handouts: Indwelling Urinary Catheter Dc Admission Data Admit Date/Time: 01/11/24 09:33 Attending Provider: Jose Hatfield Admit Provider: Jose Hatfield Primary Care Provider: Bobbi Gonzalez Other Providers: Deepak Shanks Other Interventions: Discharge Summary Assessment (RN) Last Done: 01/12/24 12:16 Coding Level of Care Code 77675 IN/OBS DISCH 30 MIN/LESS Diagnoses BPH with obstruction/lower urinary tract symptoms N40.1; N13.8
[2024-01-12] MEDS ORDERED: LANTUS PER UNIT CHARGE SC SCH (21:00)
== END 2024-01-12 14:25 | disposition home or self-care (01) ==
LOC: 3E 06:17 → ASU 06:17

== ENCOUNTER 2024-01-21 14:08 | Inpatient (IN) ==
--- NOTE | 2024-01-21 14:43 | ED Triage Note ---
Date of Service January 21, 2024 Provider in Triage Author: Monico Kevin History of Present Illness This patient was briefly evaluated while in triage. An abbreviated physical exam was performed. This patient is a 73-year-old Male who presents to the ED for evaluation of a urinary tract infection. The patient was seen in the emergency department last night, and was called from the emergency department because his blood cultures came back positive. The patient denies any significant pain, nausea or fever at home today. Patient does have a headache, rating his discomfort a 4 out of 10. Physical Exam CONSTITUTIONAL: Healthy and well nourished. Alert and oriented X 3. HEENT: No scleral icterus or conjunctival injection. RESPIRATORY: Clear to auscultation bilaterally with no wheezing, crackles, rhonchi or stridor. CARDIOVASCULAR: Regular rate and rhythm with no murmurs, rubs or gallops. GASTROINTESTINAL: Bowel sounds present in all quadrants. No abdominal tenderness to palpation. Negative CVA tenderness. MUSCULOSKELETAL: Full range of motion of all joints without discomfort. INTEGUMENTARY: No rash or other significant dermatologic conditions noted. HEMATOLOGIC: No ecchymosis or petechiae. PSYCHIATRIC: Positive affect. NEUROLOGIC: No focal neurologic deficits noted. Initial orders for labs and / or imaging were placed and patient was placed in the waiting area until a bed is available. Please see further documentation for the full ED course.
[2024-01-21] MEDS: CEFEPIME 20 ML IV STA (15:38)
--- NOTE | 2024-01-21 15:38 | Emergency Department Note ---
Impression & Plan Bacteremia, Acute UTI (urinary tract infection), LBBB (left bundle branch block) ED Provider Note NAME: JAIDEN SPRINGER Sr AGE: 73 SEX: M : 1950 ARRIVES VIA: Walk-In INFORMANT: Patient, ED PROVIDER(S): Pepe Muller DO CHIEF COMPLAINT: Urinary tract symptoms HPI: The patient is a 73-year-old male who presented to the emergency department for symptoms of urinary tract infection. The patient has been noticing dysuria and frequency. The patient was seen in our facility yesterday for similar complaints. At that time he was diagnosed with urinary tract infection. He did have rigors and at that time he had blood cultures sent. The patient returns to the emergency department today because one of his blood cultures turned positive. The patient was called by pharmacy and told to come back to the emergency department. The patient denies having any chest pain. He did have a Cormier catheter in place prior to the prostate surgery he recently had with our urology group. He denies having any rectal bleeding or rectal pain. He denies having any abdominal pain or vomiting. ROS: See above HPI for pertinent positives & negatives. A total of 10 systems reviewed and were otherwise negative. PAST MEDICAL HISTORY: See Below PAST SURGICAL HISTORY: See Below FAMILY HISTORY: See Below SOCIAL HISTORY: See Below HOME MEDICATIONS: See Below ALLERGIES: See Below VITALS: See Below PHYSICAL EXAMINATION: GENERAL: Patient is awake alert in no acute distress patient is resting comfortably and showing no signs of anxiety EYES: The conjunctivae are clear. The pupils are round and reactive. EARS, NOSE, MOUTH AND THROAT: The nose is without any evidence of any deformity. NECK: The neck is nontender and supple. RESPIRATORY: Normal respiratory effort is noted there is no evidence of wheezing rhonchi or rales CARDIOVASCULAR: Regular rate and rhythm noted there no murmurs rubs or gallops normal S1 normal S2. GASTROINTESTINAL: The abdomen is soft. Abdomen is nontender. MUSCULOSKELETAL/EXTREMITIES: There is no evidence of gross deformity full range of motion is noted in the hips and shoulders. SKIN: There is no obvious evidence of any rash. There are no petechiae, pallor or cyanosis noted. NEUROLOGIC: Patient is awake alert and oriented x3. MEDICAL DECISION MAKING: The patient is a 73-year-old male who presented to the emergency department recently for an evaluation of UTI symptoms. He had rigors and was found to have a urinary tract infection. He did have recent instrumentation of his prostate. The patient was started on antibiotics and was doing much better but was discharged home after his workup did not reveal any signs of sepsis. The patient was called by our pharmacist in the emergency department and asked to come back to the emergency department because of a positive blood culture. The patient is Well-appearing. He was not septic in appearance. Vital signs are in. Laboratory studies are reassuring. Given his bacteremia I do feel the patient may be a good candidate for at least inpatient management until his second set of blood cultures start to return. The patient was agreeable with the plan. I discussed his condition when to call call [facility]. Triage Nursing notes reviewed. Prior medical records reviewed Vital Signs: reviewed and remarkable for no significant abnormalities Differential diagnosis: Viral syndrome, otitis, pharyngitis, pneumonia, influenza, meningitis, urinary tract infection, sepsis, bacteremia, as well as other pathologies. ER treatment provided: See below Diagnostics interpreted by me: ECG: EKG was obtained in the emergency department. My interpretation is normal sinus rhythm at 78 bpm. There was no ectopy. Left bundle branch block pattern was noted. This was compared to a tracing from November 02, 2023. The left bundle branch block is new compared to previous tracing. Cardiac Monitoring: An order was placed for continuous cardiac monitoring. The monitor shows a rate of 80 bpm with sinus rhythm Laboratory studies: As stated above and show below. Imaging studies: See below. Radiographic imaging was reviewed by myself Consultation(s): I discussed this case with Dr. Ac who is on-call for the [facility] group. Past Med/Surg History Problem List (Updated 01/21/24 @ 17:52 by Rodríguez Estevez PA-C) Elevated LFTs Gram-negative bacteremia LBBB (left bundle branch block) (Acute) Acute UTI (urinary tract infection) (Acute) Bacteremia (Acute) Acute UTI (Acute) BPH with obstruction/lower urinary tract symptoms Nocturnal hypoxia Peyronie's disease (Acute) Dyslipidemia (Acute) Medical History Hx of gout GERD (gastroesophageal reflux disease) Hiatal hernia Post traumatic stress disorder Hx of migraines Myocardial Infarction ? year "long time ago" Hyperlipidemia Arthritis Controlled type 2 diabetes mellitus with neurologic complication, with long-term current use of insulin Diabetic peripheral neuropathy Hypertension, benign essential, goal below 140/90 follows with B-152 phillip ? name Mild sleep apnea cpap Obesity (BMI 30.0-34.9) Vitamin D deficiency Male erectile disorder of organic origin Surgical History History of prostate surgery Greenlight vaporization of prostate 01/11/24. History of esophagogastroduodenoscopy (EGD) H/O foot surgery rt History of carpal tunnel release rt/left H/O elbow surgery left Hx of vasectomy History of colonoscopy History of appendectomy History of tooth extraction History of tonsillectomy History of nasal cauterization x 2 (Dr. Finley) H/O metal removed from eye History of cardiac cath no stents over 10 years ago>[facility] History of facial surgery jaw surgery>no locking History of knee replacement rt S/P shoulder replacement rt Family History Mother Brain cancer Brother Bladder cancer Melanoma Father Myocardial infarction Other Cancer Coronary heart disease Diabetes No family history of adverse response to anesthesia Denies family history of Colon cancer Ovarian cancer Prostate cancer Breast cancer Social History Smoking Status: Never smoker Second Hand Exposure: No; Do You Dip or Chew Tobacco: No; Hx Alcohol Use: Yes Alcohol type: beer Alcohol Intake Frequency: 2-3 x/Week Hx Substance Use: No Preferred Language: Kazakh Communication Ability: Effective Visual Impairment: No Limitations Hearing Ability: Hard of Hearing Lemon Picker Required: No Beliefs That Will Affect Care: None marital status: Current Living Situation: Spouse current occupational status: employed and retired current occupation: Self How many Children do You have: 2 Feels Safe at Home: Yes Childhood Exposure to Second-Hand Smoke: Yes Diet: regular caffeine: Yes during the past year weight has: remained stable Dental Care, Regularly: Yes Physical Activity Frequency: Daily Seatbelt Use: always Sunscreen Use: Yes Assistive Devices: CPAP Allergies Allergies Allergy/AdvReac Type Severity Reaction Status Date / Time indomethacin AdvReac Intermediate n/v Verified 01/21/24 17:33 Home Meds Home Medications Medication Instructions Recorded Confirmed aspirin 325 mg tablet 325 mg PO QAM 04/27/19 01/21/24 allopurinol 300 mg tablet 300 mg PO QAM 05/02/19 01/21/24 metformin 1,000 mg tablet 1,000 mg PO BID 05/02/19 01/21/24 atorvastatin 10 mg tablet 10 mg PO HS 04/30/21 01/21/24 finasteride 5 mg tablet 5 mg PO HS 04/21/22 01/21/24 lisinopril 5 mg tablet 2.5 mg PO QAM 04/21/22 01/21/24 gabapentin 400 mg capsule See Rx Instructions .Route .COMPLEX 04/29/22 01/21/24 cholecalciferol (vitamin D3) 25 1,000 units PO HS 10/23/23 01/21/24 mcg (1,000 unit) capsule famotidine 20 mg tablet (Pepcid) 20 mg PO DAILY PRN gerd 10/23/23 01/21/24 insulin glargine 100 unit/mL (3 22 unit subcut HS 10/23/23 01/21/24 mL) subcutaneous pen (Lantus Solostar U-100 Insulin) tamsulosin 0.4 mg capsule 0.4 mg PO HS 10/23/23 01/21/24 multivitamin 1 tab PO DAILY 01/21/24 01/21/24 semaglutide 2 mg/dose (8 mg/3 mL) 2 mg subcut WK 01/21/24 01/21/24 subcutaneous pen injector (Ozempic) Previous Rx's Medication Instructions Recorded tadalafil 5 mg tablet 5 mg PO DAILY PRN sexual activity 10/21/21 #30 tabs blood-glucose meter,continuous #1 ea 01/16/23 cefdinir 300 mg capsule 300 mg PO BID 7 days #14 caps 01/20/24 Results & Data (ED) Vital Signs Vital Signs - 24 hr 01/21/24 14:39 01/21/24 15:46 01/21/24 15:55 Temperature 36.6 C Temperature Source Temporal Artery Scan Pulse Rate 91 H 82 Pulse Rate [Apical] 77 Respiratory Rate 16 20 Respiratory Effort / Characteristics Non-Labored Non-Labored Spontaneous Respiratory Depth Normal Normal Respiratory Pattern Blood Pressure 122/79 Blood Pressure [Left Arm] 129/89 Blood Pressure Mean 93 Blood Pressure Mean [Left Arm] 102 Pulse Oximetry 94 97 Oxygen Delivery Method Room Air Room Air Sepsis Recent Fever Within 48 Hours No Sepsis New/Unexplained Change in Mental Status N/A Sepsis Action Taken by Nursing No Action Required 01/21/24 17:23 Temperature Temperature Source Pulse Rate Pulse Rate [Apical] 84 Respiratory Rate 18 Respiratory Effort / Characteristics Non-Labored Respiratory Depth Normal Respiratory Pattern Regular Blood Pressure Blood Pressure [Left Arm] Blood Pressure Mean Blood Pressure Mean [Left Arm] Pulse Oximetry 98 Oxygen Delivery Method Room Air Sepsis Recent Fever Within 48 Hours Sepsis New/Unexplained Change in Mental Status Sepsis Action Taken by [facility] Medications Current Medication List: was personally reviewed by me Laboratory Data Attestation: I reviewed the patient's lab results. 01/21/24 15:39 01/21/24 15:39 Lab Results 01/21/24 01/21/24 Range/Units 15:39 15:43 WBC 9.13 (4.8-10.8) K/ul RBC 5.09 (4.70-6.10) M/uL Hgb 14.7 (14.0-18.0) g/dl Hct 44.6 (42.0-52.0) % MCV 87.6 (80.0-100.0) fL MCH 28.9 (25.0-34.0) pg MCHC 33.0 (32.0-36.0) g/dL RDW Std Deviation 43.4 (36.4-46.3) fL RDW Coeff of Elsy 13.4 (11.5-14.5) % Plt Count 297 (130-400) K/uL MPV 11.5 (9.4-12.4) fL Immature Gran % (Auto) 0.5 % Neut % (Auto) 65.6 % Lymph % (Auto) 20.8 % Finney % (Auto) 10.7 % Eos % (Auto) 1.6 % Baso % (Auto) 0.8 % Neut # (Auto) 5.98 (1.40-6.50) K/uL Lymph # (Auto) 1.90 (1.20-3.40) K/uL Finney # (Auto) 0.98 H (0.11-0.59) K/uL Eos # (Auto) 0.15 (0.00-0.50) K/uL Baso # (Auto) 0.07 (0.00-0.20) K/uL Immature Gran # (Auto) 0.05 (0.01-0.20) K/uL Sodium 136 (136-145) mmol/L Potassium 3.8 (3.5-5.1) mmol/L Chloride 102 (98-107) mmol/L Carbon Dioxide 29 (21-32) mmol/L Anion Gap 5 (3-11) BUN 13 (6-23) mg/dl Creatinine 0.88 (0.6-1.4) mg/dl Est Cr Clr Drug Dosing 88.0 ml/min Est GFR ( Amer) 98.1 ml/min Est GFR (Non-Af Amer) 84.6 ml/min BUN/Creatinine Ratio 14.8 (10-20) Glucose 157 H (70-99(Fasting)) mg/dl Lactate 1.0 (0.4-2.0) mmol/L Calcium 9.2 (8.6-10.3) mg/dl Total Bilirubin 0.5 (0.2-1.0) mg/dl AST 79 H (13-39) U/L ALT 89 H (7-52) U/L Alkaline Phosphatase 122 H (34-104) U/L Troponin I High Sens 5.5 (0-20) pg/ml C-Reactive Protein 7.87 H (0-0.5) mg/dl Total Protein 7.6 (6.0-8.3) gm/dl Albumin 4.2 (3.4-5.0) gm/dl Globulin 3.4 (2.5-4.0) gm/dl Albumin/Globulin Ratio 1.2 (0.9-2) Procalcitonin 0.41 (0-0.5) ng/ml Administered Medications Discontinued Medications Acetaminophen (Acetaminophen 325 Mg Tab) 650 mg PO NOW STA Stop: 01/21/24 15:38 Last Admin: 01/21/24 15:40 Dose: Not Given Documented By: HS Cefepime HCl (Maxipime) 20 mls @ 5 mls/min IV NOW STA Stop: 01/21/24 15:24 Last Admin: 01/21/24 15:38 Dose: 5 mls/min Documented By: HS Sodium Chloride (Nss) 1,000 mls @ 999 mls/hr IV .Q1H1M ONE Stop: 01/21/24 16:37 Last Infusion: 01/21/24 17:15 Dose: Infused Documented By: Admin: 01/21/24 15:39 Dose: 999 mls/hr Documented By: HS Discharge Plan Visit Data Chief Complaint: Infection Stated Complaint: IV ANTIBIOTICS FOR UTI ED Provider: Pepe Muller Discharge Problem: Bacteremia, Acute UTI (urinary tract infection), LBBB (left bundle branch block) Patient Disposition: Being Evaluated by Hospitalist Forms Stand Alone Forms: My [facility] [employer] Prescriptions Prescriptions: No Action allopurinol 300 mg tablet 300 mg PO QAM metformin 1,000 mg tablet 1,000 mg PO BID tadalafil 5 mg tablet 5 mg PO DAILY PRN (Reason: sexual activity) Qty: 30 0RF Rx Instructions: administer approximately 30min before sexual activity; do not use more than 1 dose per 24hrs finasteride 5 mg tablet 5 mg PO HS lisinopril 5 mg tablet 2.5 mg PO QAM aspirin 325 mg tablet 325 mg PO QAM atorvastatin 10 mg tablet 10 mg PO HS gabapentin 400 mg capsule See Rx Instructions .ROUTE .COMPLEX Patient Comments: 400mg qam/800mg hs Rx Instructions: TAKES 400mg in am; 800mg at night (DME) blood-glucose meter,continuous Misc See Rx Instructions .Route Qty: 1 0RF Rx Instructions: As directed cefdinir 300 mg capsule 300 mg PO BID 7 Days Qty: 14 0RF Rx Instructions: STARTED 01/20/24 FOR 7 DAYS insulin glargine [Lantus Solostar U-100 Insulin] 100 unit/mL (3 mL) Insulin Pen 22 unit SUBCUT HS tamsulosin 0.4 mg capsule 0.4 mg PO HS cholecalciferol (vitamin D3) 1,000 unit capsule 1,000 units PO HS famotidine [Pepcid] 20 mg Tablet 20 mg PO DAILY PRN (Reason: gerd) multivitamin Tablet 1 tab PO DAILY Ozempic 2 mg/dose (8 mg/3 mL) Pen Injector 2 mg SUBCUT WK Rx Instructions: WEDNESDAYS Referrals Referrals: Bobbi Gonzalez MD [Primary Care Provider] -
[2024-01-21] MEDS: SODIUM CHLORIDE 0.9% 1,000 ML IV ONE (15:39)
[2024-01-21] MEDS: ACETAMINOPHEN 325 MG TAB PO STA (15:40)
[2024-01-21 16:01] LABS: Basophils # (auto) 0.07 K/uL (0.00-0.20); Basophils % (auto) 0.8 %; Eosinophils # (auto) 0.15 K/uL (0.00-0.50); Eosinophils % (auto) 1.6 %; Hematocrit (blood only) 44.6 % (42.0-52.0); Hemoglobin 14.7 g/dl (14.0-18.0); Immature Granulocytes # (auto) 0.05 K/uL (0.01-0.20); Immature Granulocytes % (auto) 0.5 %; Lymphocytes % (auto) 20.8 %; Mean Corpuscular Hemoglobin 28.9 pg (25.0-34.0); Mean Corpuscular Volume 87.6 fL (80.0-100.0); Mean Platelet Volume 11.5 fL (9.4-12.4); Monocytes # (auto) 0.98 K/uL (0.11-0.59); Monocytes % (auto) 10.7 %; Neutrophils # (auto) 5.98 K/uL (1.40-6.50); Neutrophils % (auto) 65.6 %; Platelet Count 297 K/uL (130-400); RDW Coefficient of Variation 13.4 % (11.5-14.5); RDW Standard Deviation 43.4 fL (36.4-46.3); Red Blood Count 5.09 M/uL (4.70-6.10); White Blood Count 9.13 K/ul (4.8-10.8)
[2024-01-21 16:17] LABS: Albumin Globulin Ratio 1.2 (0.9-2); Albumin Level 4.2 gm/dl (3.4-5.0); BUN Creatinine Ratio 14.8 (10-20); Bilirubin,Total 0.5 mg/dl (0.2-1.0); C Reactive Protein 7.87 mg/dl (0-0.5); Calcium 9.2 mg/dl (8.6-10.3); Est GFR (African American) 98.1 ml/min; Est GFR (Non-African American) 84.6 ml/min; Globulin 3.4 gm/dl (2.5-4.0); Potassium 3.8 mmol/L (3.5-5.1); Total Protein 7.6 gm/dl (6.0-8.3)
[2024-01-21 16:22] LABS: Troponin I High Sensitivity 5.5 pg/ml (0-20)
--- NOTE | 2024-01-21 17:24 | History & Physical Report ---
Date of Service January 21, 2024 Assessment & Plan (1) Gram-negative bacteremia: Plan: -Admit to med/tele -Currently stable and non-toxic appearing -Presented back to the ED today after his set of Aerobic blood cultures obtained on 01/19 were positive for Serratia Marcescens -Had subjective fever, chills and dysuria on 01/19, symptoms significantly improved after a dose of Ceftriaxone last night -Initial PCR testing is negative for resistant genes -S/P one dose of Cefepime in the ED, will continue with Ceftriaxone for now given his clinical stability and improvement in symptoms -Follow urine/blood cultures -SQ lovenox for DVT PPX -HH/DMII diet -AM CBC, CMP, mag, PT/INR (2) Acute UTI (urinary tract infection): Plan: -See gram negative bacteremia (3) Elevated LFTs: Plan: -AST of 79, ALT of 89, Alk phos of 122, total bili WNL -Patient typically drinks 1-2 beers a day, last drink was 48 hours ago -No abd pain, jaundice, or scleral icterus -Likely due to alcohol use and bacteremia -Avoid hepatotoxic agents -Monitor daily CMP, if not improving by tomorrow would obtain further workup (4) BPH with obstruction/lower urinary tract symptoms: Plan: -Continue Tamsulosin and Finasteride -QSE bladder scans (5) Dyslipidemia: Plan: -Continue statin (6) Hypertension, benign essential, goal below 140/90: Plan: -Stable -Continue Lisinopril, Plan The patient was discussed with Dr. Ac at the time of the admission History of Present Illness Chief Complaint: Positive blood cultures Primary Care Provider: Bobbi Gonzalez MD [facility]. is a 73 year old male with a PMH significant for BPH with obstruction/lower urinary tract symptoms S/P Photoselective Vaporization of the Prostate Using the Greenlight Laser w/Dr. Hatfield on 01/11/24, DM, HTN, hyperlipidemia, and GERD who presented to the [facility] ED on 01/21/24 after blood cultures obtained on his ED visit on 01/20/24 were found to be positive. The patient initially presented to the [facility] ED on 01/20/24 with fever and chills. Noted to have a leukocytosis of 12, neutrophil predominance of 10, corrected sodium of 133, and UA consistent with infection. He was treated with a dose of ceftriaxone, given 1L NSS, and discharged with a course of Cefdinir. He remained stable in the ED today. Labs were significant for an improved WBC of 9, sodium of 137, crp of 7.87, AST of 79, ALT of 89, alk phos of 122, and procal of 0.41. Urine culture and the patient's Aerobic set of blood cultures were positive for gram negative bacilli. Initial PCR testing is positive for Serratia Marcescens but negative for resistant genes. Prior to admission the patient was given 1L NSS, a dose of Cefepime, and 650 mg PO Tylenol. At the time of the exam the patient was lying in bed in no acute distress. States that he was experiencing subjective fever, chills, and dysuria yesterday which prompted ED arrival. Since receiving Ceftriaxone in the ED last night his symptoms have significant improved. Denies chest pain, SOB, abd pain, nausea, vomiting, diarrhea, hematuria, melena, LE swelling, recent trauma, scrotal or perineal pain. When asked, he does not use tobacco but does drink approximately 2 beers a day. His last drink was approximately 48 hours ago. He denies a previous hx of withdrawal if he stops drinking. He is a full code and his children would be his primary decision makers if he cannot make decisions himself. Please refer to Dr. Ac's attestation for any changes to the treatment plan Allergies Allergy/AdvReac Type Severity Reaction Status Date / Time indomethacin AdvReac Intermediate n/v Verified 01/21/24 17:33 Home Medications Medication Instructions Recorded Confirmed Type aspirin 325 mg tablet 325 mg PO QAM 04/27/19 01/21/24 History allopurinol 300 mg tablet 300 mg PO QAM 05/02/19 01/21/24 History metformin 1,000 mg tablet 1,000 mg PO BID 05/02/19 01/21/24 History atorvastatin 10 mg tablet 10 mg PO HS 04/30/21 01/21/24 History tadalafil 5 mg tablet 5 mg PO DAILY PRN sexual activity 10/21/21 01/21/24 Rx #30 tabs finasteride 5 mg tablet 5 mg PO HS 04/21/22 01/21/24 History lisinopril 5 mg tablet 2.5 mg PO QAM 04/21/22 01/21/24 History gabapentin 400 mg capsule See Rx Instructions .Route .COMPLEX 04/29/22 01/21/24 History blood-glucose meter,continuous #1 ea 01/16/23 01/20/24 Rx cholecalciferol (vitamin D3) 25 1,000 units PO HS 10/23/23 01/21/24 History mcg (1,000 unit) capsule famotidine 20 mg tablet (Pepcid) 20 mg PO DAILY PRN gerd 10/23/23 01/21/24 History insulin glargine 100 unit/mL (3 22 unit subcut HS 10/23/23 01/21/24 History mL) subcutaneous pen (Lantus Solostar U-100 Insulin) tamsulosin 0.4 mg capsule 0.4 mg PO HS 10/23/23 01/21/24 History cefdinir 300 mg capsule 300 mg PO BID 7 days #14 caps 01/20/24 01/21/24 Rx multivitamin 1 tab PO DAILY 01/21/24 01/21/24 History semaglutide 2 mg/dose (8 mg/3 mL) 2 mg subcut WK 01/21/24 01/21/24 History subcutaneous pen injector (Ozempic) Past Med/Surg History Problem List (Updated 01/21/24 @ 17:52 by Rodríguez Estevez PA-C) Elevated LFTs Gram-negative bacteremia LBBB (left bundle branch block) (Acute) Acute UTI (urinary tract infection) (Acute) Bacteremia (Acute) Acute UTI (Acute) BPH with obstruction/lower urinary tract symptoms Nocturnal hypoxia Peyronie's disease (Acute) Dyslipidemia (Acute) Medical History Hx of gout GERD (gastroesophageal reflux disease) Hiatal hernia Post traumatic stress disorder Hx of migraines Myocardial Infarction ? year "long time ago" Hyperlipidemia Arthritis Controlled type 2 diabetes mellitus with neurologic complication, with long-term current use of insulin Diabetic peripheral neuropathy Hypertension, benign essential, goal below 140/90 follows with [employer] ? name Mild sleep apnea cpap Obesity (BMI 30.0-34.9) Vitamin D deficiency Male erectile disorder of organic origin Surgical History History of prostate surgery Greenlight vaporization of prostate 01/11/24. History of esophagogastroduodenoscopy (EGD) H/O foot surgery rt History of carpal tunnel release rt/left H/O elbow surgery left Hx of vasectomy History of colonoscopy History of appendectomy History of tooth extraction History of tonsillectomy History of nasal cauterization x 2 (Dr. Finley) H/O metal removed from eye History of cardiac cath no stents over 10 years ago>[facility] History of facial surgery jaw surgery>no locking History of knee replacement rt S/P shoulder replacement rt Family History Mother Brain cancer Brother Bladder cancer Melanoma Father Myocardial infarction Other Cancer Coronary heart disease Diabetes No family history of adverse response to anesthesia Denies family history of Colon cancer Ovarian cancer Prostate cancer Breast cancer Social History Smoking Status: Never smoker Second Hand Exposure: No; Do You Dip or Chew Tobacco: No; Hx Alcohol Use: Yes Alcohol type: beer Alcohol Intake Frequency: 2-3 x/Week Hx Substance Use: No Preferred Language: Frisian Communication Ability: Effective Visual Impairment: No Limitations Hearing Ability: Hard of Hearing Rn Case Manager Required: No Beliefs That Will Affect Care: None marital status: Current Living Situation: Spouse current occupational status: employed and retired current occupation: Self How many Children do You have: 2 Feels Safe at Home: Yes Childhood Exposure to Second-Hand Smoke: Yes Diet: regular caffeine: Yes during the past year weight has: remained stable Dental Care, Regularly: Yes Physical Activity Frequency: Daily Seatbelt Use: always Sunscreen Use: Yes Assistive Devices: CPAP Physical Exam Physical Exam: Physical Exam: General: In no acute distress, stated age, well-nourished, good hygiene HEENT: Normocephalic, atraumatic, no scleral icterus, pupils around round, symmetrical, and reactive to light, moist mucus membranes, trachea midline, no thyromegaly Chest/Pulm: No respiratory distress, symmetrical chest expansion, clear breath sounds throughout Cardiac: RRR, no murmurs noted Abdomen: Negative for ascites and bruising, normoactive bowel sounds, soft, non-tender to palpation throughout : Negative CVA tenderness BL Musculoskeletal: Symmetrical and without signs of acute trauma, upper and lower extremities with full ROM, no atrophy, spasticity, or flaccidity Extremities: Radial, dorsalis pedis, and posterior tibial pulses are intact and symmetrical, no edema noted in the BL LE's Skin: Warm, dry, no rashes , lesions, or scars noted Neuro: Alert and oriented to person, place, month, year, and president, no focal defects, no tremors noted Psych: No acute distress, calm and cooperative during the exam Results & Data Results & Data Vital Signs (Past 12 Hours) Vital Signs Temp Pulse Pulse Resp BP BP Pulse Ox 01/21/24 15:55 82 01/21/24 15:46 77 20 129/89 97 01/21/24 14:39 36.6 C 91 H 16 122/79 94 O2 Del Method 01/21/24 15:55 01/21/24 15:46 Room Air 01/21/24 14:39 Room Air Laboratory Results Abnormal lab results 01/21/24 Range/Units 15:39 [place] # (Auto) 0.98 H (0.11-0.59) K/uL Glucose 157 H (70-99(Fasting)) mg/dl AST 79 H (13-39) U/L ALT 89 H (7-52) U/L Alkaline Phosphatase 122 H (34-104) U/L C-Reactive Protein 7.87 H (0-0.5) mg/dl Code Status & VTE Plan Code Status Full code VTE Prophylaxis Plan VTE Prophylaxis will be ordered: Yes Supervising Physician Co-Signing Physician Notes patient was seen and examined, came to ER yesterday with fever , had TURP 01/11, qureshi removed on Thursday, Thursday started spiking fever , completed antibiotics on Thursday , ws discharge from ER on cephalosporins, does not remember what antibiotics he took after surgery, repeat blood cultures, start IV Ceftriaxone , follow on blood culture, urine culture , adjust antibiotics accordingly. Continue meds for other medical conditions. PG Care Time/CCT Total # of Minutes Spent Total Time Spent with Patient: Total time spent is greater than 50% in coordination of care (as documented) at patient's floor/unit and/or counseling patient: C[place] [address] INT INP/OBS CARE 2/55MIN Patient Type Established Medical Decision Making Moderate Complexity Diagnoses Gram-negative bacteremia R78.81 Acute UTI (urinary tract infection) N39.0 Elevated LFTs R79.89 BPH with obstruction/lower urinary tract symptoms N40.1; N13.8 Dyslipidemia E78.5 Hypertension, benign essential, goal below 140/90 I10
[2024-01-21] MEDS ORDERED: DEXTROSE 50% 50 ML SYRINGE IV PRN (17:40)
[2024-01-21] MEDS ORDERED: GLUCOSE 10 TAB/TUBE PO PRN (17:40)
[2024-01-21] MEDS ORDERED: GLUCAGON FOR INJ 1 MG VIAL SQ PRN (17:40)
[2024-01-21] MEDS ORDERED: CARBOHYDRATES FOR HYPOGLYCEMIA PO PRN (17:40)
[2024-01-21] MEDS ORDERED: GLUCOSE 40% GEL 15 GM TUBE PO PRN (17:40)
[2024-01-21] MEDS ORDERED: FAMOTIDINE 20 MG TAB PO PRN (17:42)
[2024-01-21] MEDS: ENOXAPARIN INJ 40 MG/0.4 ML SYR SQ SCH (21:48)
[2024-01-21] MEDS: IBUPROFEN 600 MG TAB PO SCH (21:48)
[2024-01-21] MEDS: cefTRIAXone SODIUM 2,000 MG/50 ML BAG IV SCH (21:48)
[2024-01-21] MEDS: LANTUS PER UNIT CHARGE SQ SCH (21:49)
[2024-01-21] MEDS: INSULIN ASPART PER UNIT CHARGE SC SCH (21:49)
[2024-01-21] MEDS: TAMSULOSIN HCL 0.4 MG CAP PO SCH (21:50)
[2024-01-21] MEDS: ATORVASTATIN 10 MG TAB PO SCH (21:50)
[2024-01-21] MEDS: GABAPENTIN 400 MG CAP PO SCH (21:50)
[2024-01-21] MEDS: FINASTERIDE 5 MG TAB PO SCH (21:50)
[2024-01-22 06:49] LABS: Basophils # (auto) 0.06 K/uL (0.00-0.20); Basophils % (auto) 0.7 %; Eosinophils # (auto) 0.38 K/uL (0.00-0.50); Eosinophils % (auto) 4.4 %; Hemoglobin 13.5 g/dl (14.0-18.0); Immature Granulocytes # (auto) 0.07 K/uL (0.01-0.20); Immature Granulocytes % (auto) 0.8 %; Lymphocytes # (auto) 2.82 K/uL (1.20-3.40); Lymphocytes % (auto) 32.4 %; Mean Corpuscular Hgb Conc 32.9 g/dL (32.0-36.0); Mean Platelet Volume 11.6 fL (9.4-12.4); Monocytes # (auto) 1.44 K/uL (0.11-0.59); Monocytes % (auto) 16.6 %; Neutrophils # (auto) 3.93 K/uL (1.40-6.50); Neutrophils % (auto) 45.1 %; Platelet Count 266 K/uL (130-400); RDW Coefficient of Variation 13.8 % (11.5-14.5); RDW Standard Deviation 44.1 fL (36.4-46.3); Red Blood Count 4.66 M/uL (4.70-6.10)
[2024-01-22 07:17] LABS: Albumin Globulin Ratio 1.2 (0.9-2); Albumin Level 3.7 gm/dl (3.4-5.0); BUN Creatinine Ratio 16.2 (10-20); Bilirubin,Total 0.5 mg/dl (0.2-1.0); Calcium 8.7 mg/dl (8.6-10.3); Creatinine Clr Calc Pharmacy 104.7 ml/min; Est GFR (African American) 105.3 ml/min; Est GFR (Non-African American) 90.9 ml/min; Globulin 3.1 gm/dl (2.5-4.0); Potassium 4.1 mmol/L (3.5-5.1); Total Protein 6.8 gm/dl (6.0-8.3)
[2024-01-22] MEDS: allopurinoL 300 MG TAB PO SCH (08:22)
[2024-01-22] MEDS: lisinopril 2.5 MG TAB PO SCH (08:22)
[2024-01-22] MEDS: ASPIRIN 325 MG ECTAB PO SCH (08:22)
[2024-01-22] MEDS: GABAPENTIN 400 MG CAP PO SCH (08:22)
--- NOTE | 2024-01-22 08:36 | Hospitalist Progress Note ---
Date of Service January 22, 2024 Assessment & Plan (1) Gram-negative bacteremia: Plan: 73 y/o with BPH with LUTS who underwent greenlight vaporization of the prostate by Dr. Hatfield on 01/10. Had 5d prophylaxis with cephalexin following procedure. Qureshi removed 01/17 or . Presented to ED 01/19 with fever/chills, treated in ED for UTI with ceftriaxone, discharged on po cefdinir. 01/20 called back to ED for positive blood culture. Given dose of cefepime in ED then changed to ceftriaxone at admission. Serratia bacteremia from urinary source, recent instrumentation and qureshi catheter. Low grade thus far, / bottles, serratia by molecular assay and irving- sensitive serratia from urine culture 01/19 -continue ceftriaxone today is day 3 of IV antibiotics, plan to continue IV at least through Thursday -renal ultrasound to eval for obstruction, though seems unlikely -repeat blood cultures for clearance 01/21 -candidate for discharge on oral antibitoics to complete total 10-14d course. -continue tamsulosin and finasteride for BPH -discuss with Dr. Hatfield (2) Acute UTI (urinary tract infection): Plan: -See gram negative bacteremia (3) Elevated LFTs: Plan: -AST of 79, ALT of 89, Alk phos of 122, total bili WNL -probably mild ischemic hepatitis in setting of bacteremia/sepsis and underlying hepatic steatosis. 1-2 drinks a day of alcohol so may also have component of MAFLD - repeat LFTs in 48 hours (4) BPH with obstruction/lower urinary tract symptoms: Plan: -Continue Tamsulosin and Finasteride -QSE bladder scans (5) Dyslipidemia: Plan: -Continue statin (6) Hypertension, benign essential, goal below 140/90: Plan: -Stable -Continue Lisinopril, Plan DVT prophylaxisenoxaparin Admission and Anticipated Discharge Date Admission Date: January 21, 2024 Subjective feels much better than 24 to 48 hours ago, no longer having fevers, feels stronger, denies suprapubic pain or back pain after his prostate procedure symptoms include some ongoing urinary hesitancy has to make sure to void completely Physical Exam 2 Physical Exam: PHYSICAL EXAMINATION Last 24h vital signs reviewed, see documentation in flowsheet General: comfortable appearing, no distress HEENT: Normocephalic, atraumatic, pupils round and equal, sclerae anicteric, no conjunctival injection, moist mucus membranes Lungs: Normal respiratory effort. Clear to auscultation bilaterally. No RRW Heart: Regular rate and rhythm, no murmurs. No JVD Abdomen: Soft, nontender, nondistended. Bowel sounds present. Extremities: Warm, dry, well-perfused. No extremity edema. Neuro: Alert and oriented x 4, face symmetric, moves 4 extremities well Psych: Normal affect and behavior Results & Data Results & Data Vital Signs (Past 12 Hours) Vital Signs Temp Pulse Pulse Resp BP Pulse Ox O2 Del Method 01/22/24 07:46 36.4 C L 63 18 118/74 94 Room Air 01/22/24 07:23 78 01/22/24 03:37 36.9 C 70 16 129/74 93 Room Air 01/22/24 00:40 36.7 C 79 18 131/78 92 Room Air 01/21/24 22:00 88 01/21/24 21:05 81 01/21/24 20:58 01/21/24 20:40 Room Air 01/21/24 20:40 36.7 C 87 18 153/84 H 94 Room Air 01/21/24 20:40 36.7 C 87 18 153/84 H 94 Room Air O2 Del Method 01/22/24 07:46 01/22/24 07:23 01/22/24 03:37 01/22/24 00:40 01/21/24 22:00 01/21/24 21:05 01/21/24 20:58 Room Air 01/21/24 20:40 01/21/24 20:40 01/21/24 20:40 Laboratory Results 01/22/24 05:47 01/22/24 05:47 PG Care Time/CCT Total # of Minutes Spent Total Time Spent with Patient: Total time spent is greater than 50% in coordination of care (as documented) at patient's floor/unit and/or counseling patient: Coding Level of Care Code 58667 SUB INP/OBS CARE 3/50MIN Diagnoses Gram-negative bacteremia R78.81 Acute UTI (urinary tract infection) N39.0 Elevated LFTs R79.89 BPH with obstruction/lower urinary tract symptoms N40.1; N13.8 Dyslipidemia E78.5 Hypertension, benign essential, goal below 140/90 I10
--- NOTE | 2024-01-22 08:45 | Electrocardiogram Report ---
Test Reason : Blood Pressure : / mmHG Vent. Rate : 078 BPM Atrial Rate : 078 BPM P-R Int : 196 ms QRS Dur : 132 ms QT Int : 374 ms P-R-T Axes : 050 -58 080 degrees QTc Int : 426 ms Normal sinus rhythm Left axis deviation Non-specific intra-ventricular conduction block Possible Old Septal infarct Abnormal ECG When compared with ECG of 19-MAY-2013 09:25, QRS duration has increased Minimal criteria for Septal infarct are now Present Confirmed by Braxton Randall ([id number]) on 01/22/2024 8:44:52 AM Referred By: REFERRED SELF Confirmed By:Braxton Randall
--- NOTE | 2024-01-22 09:16 | Ultrasound Report ---
RENAL ULTRASOUND HISTORY: UTI, hematuria COMPARISON: Renal ultrasound 09/25/2023. FINDINGS: Right kidney: 11.8 cm. No hydronephrosis. Normal corticomedullary differentiation and cortical thickn ess. Left kidney: 11.0 cm. No hydronephrosis. Normal corticomedullary differentiation and cortical thickne ss. Bladder: Diffusely thickened and underdistended. The ureteral jets were not identified. IMPRESSION: 1. Normal kidneys. No hydronephrosis. 2. Diffusely thickened bladder which is underdistended. This could be due to chronic outlet obstructi on or an underlying cystitis. Recommend correlation with urinalysis. ACT 112: Negative or not required by law. Electronically signed by: Roberto Dasilva M.D. 01/22/2024 9:15 AM
[2024-01-23 06:52] LABS: Basophils # (auto) 0.06 K/uL (0.00-0.20); Basophils % (auto) 0.6 %; Eosinophils # (auto) 0.39 K/uL (0.00-0.50); Eosinophils % (auto) 4.2 %; Hematocrit (blood only) 42.9 % (42.0-52.0); Hemoglobin 14.5 g/dl (14.0-18.0); Immature Granulocytes # (auto) 0.07 K/uL (0.01-0.20); Immature Granulocytes % (auto) 0.8 %; Lymphocytes # (auto) 2.67 K/uL (1.20-3.40); Lymphocytes % (auto) 28.7 %; Mean Corpuscular Hemoglobin 29.2 pg (25.0-34.0); Mean Corpuscular Hgb Conc 33.8 g/dL (32.0-36.0); Mean Corpuscular Volume 86.5 fL (80.0-100.0); Monocytes # (auto) 1.07 K/uL (0.11-0.59); Monocytes % (auto) 11.5 %; Neutrophils # (auto) 5.03 K/uL (1.40-6.50); Neutrophils % (auto) 54.2 %; Platelet Count 316 K/uL (130-400); RDW Coefficient of Variation 13.3 % (11.5-14.5); RDW Standard Deviation 41.9 fL (36.4-46.3); Red Blood Count 4.96 M/uL (4.70-6.10); White Blood Count 9.29 K/ul (4.8-10.8)
[2024-01-23 07:19] LABS: Albumin Globulin Ratio 1.2 (0.9-2); Albumin Level 3.8 gm/dl (3.4-5.0); BUN Creatinine Ratio 22.5 (10-20); Bilirubin,Total 0.4 mg/dl (0.2-1.0); Calcium 9.1 mg/dl (8.6-10.3); Creatinine Clr Calc Pharmacy 109.1 ml/min; Est GFR (African American) 107.1 ml/min; Est GFR (Non-African American) 92.4 ml/min; Globulin 3.2 gm/dl (2.5-4.0); Potassium 4.2 mmol/L (3.5-5.1)
--- NOTE | 2024-01-23 12:08 | Hospitalist Progress Note ---
Date of Service January 23, 2024 Assessment & Plan (1) Gram-negative bacteremia: Plan: 73 y/o with BPH with LUTS who underwent greenlight vaporization of the prostate by Dr. Hatfield on 01/10. Had 5d prophylaxis with cephalexin following procedure. Qureshi removed 01/17 or . Presented to ED 01/19 with fever/chills, treated in ED for UTI with ceftriaxone, discharged on po cefdinir. 01/20 called back to ED for positive blood culture. Given dose of cefepime in ED then changed to ceftriaxone at admission. Sepsis due to Serratia bacteremia was present at the time of initial ED visit 01/19 causing fever, tachycardia, leukocytosis to 12.3 and mild ischemic hepatitis. Sepsis had resolved when called in to ED 01/20 for admission. Serratia bacteremia from urinary source, recent instrumentation and qureshi catheter. Low grade thus far, 1/ bottles, serratia by molecular assay and irving- sensitive serratia from urine culture 01/19 -continue ceftriaxone today is day 4 of IV antibiotics, plan to continue IV through Thursday then discharge on oral cipro to complete total 14d course, discussed with Dr. Hatfield 01/21 - he will arrange close office follow up -renal ultrasound negative for obstruction -repeat blood cultures for clearance 01/21 - ngtd at 24h -continue tamsulosin and finasteride for BPH -discussed with pharmacist to october timing of CTX up to earlier in the day (currently 9pm) (2) Acute UTI (urinary tract infection): Plan: -Serratia -See above (3) Elevated LFTs: Plan: -AST of 79, ALT of 89, Alk phos of 122, total bili WNL -mild ischemic hepatitis in setting of bacteremia/sepsis and underlying hepatic steatosis. - repeat LFTs 01/22 virtually normalized (4) BPH with obstruction/lower urinary tract symptoms: Plan: -Continue Tamsulosin and Finasteride (5) Dyslipidemia: Plan: -Continue statin (6) Hypertension, benign essential, goal below 140/90: Plan: -Stable -Continue Lisinopril Plan DVT prophylaxisenoxaparin Admission and Anticipated Discharge Date Admission Date: January 21, 2024 Anticipated date of discharge: 01/25/24 Subjective Doing really well. Still some bladder pain with voiding but that has improved. His is in hospital on 3rd floor. Physical Exam 2 Physical Exam: PHYSICAL EXAMINATION Last 24h vital signs reviewed, see documentation in flowsheet 01/22 exam remains normal General: comfortable appearing, no distress HEENT: Normocephalic, atraumatic, pupils round and equal, sclerae anicteric, no conjunctival injection, moist mucus membranes Lungs: Normal respiratory effort. Clear to auscultation bilaterally. No RRW Heart: Regular rate and rhythm, no murmurs. No JVD Abdomen: Soft, nontender, nondistended. Bowel sounds present. Extremities: Warm, dry, well-perfused. No extremity edema. Neuro: Alert and oriented x 4, face symmetric, moves 4 extremities well Psych: Normal affect and behavior Results & Data Results & Data Vital Signs (Past 12 Hours) Vital Signs Temp Pulse Pulse Pulse Resp BP Pulse Ox 01/23/24 11:35 36.8 C 71 16 109/70 91 01/23/24 09:55 01/23/24 08:02 36.7 C 64 16 118/74 90 01/23/24 07:32 66 01/23/24 03:35 36.9 C 83 20 110/68 97 01/23/24 00:11 63 Pulse Ox O2 Del Method O2 Del Method 01/23/24 11:35 Room Air 01/23/24 09:55 90 Room Air 01/23/24 08:02 Room Air 01/23/24 07:32 01/23/24 03:35 Room Air 01/23/24 00:11 Laboratory Results 01/23/24 05:29 01/23/24 05:29 PG Care Time/CCT Total # of Minutes Spent Total Time Spent with Patient: Total time spent is greater than 50% in coordination of care (as documented) at patient's floor/unit and/or counseling patient: Coding Level of Care Code 48160 SUB INP/OBS CARE 2/35MIN Diagnoses Gram-negative bacteremia R78.81 Acute UTI (urinary tract infection) N39.0 Elevated LFTs R79.89 BPH with obstruction/lower urinary tract symptoms N40.1; N13.8 Dyslipidemia E78.5 Hypertension, benign essential, goal below 140/90 I10
[2024-01-24] MEDS: SODIUM CHLORIDE 0.65% NA SOLN 45 ML (OCEAN) ONE (00:52)
--- NOTE | 2024-01-24 14:25 | Hospitalist Progress Note ---
Date of Service January 24, 2024 Assessment & Plan (1) Gram-negative bacteremia: Plan: 73 y/o with BPH with LUTS who underwent greenlight vaporization of the prostate by Dr. Hatfield on 01/10. Had 5d prophylaxis with cephalexin following procedure. Qureshi removed 01/17 or . Presented to ED 01/19 with fever/chills, treated in ED for UTI with ceftriaxone, discharged on po cefdinir. 01/20 called back to ED for positive blood culture. Given dose of cefepime in ED then ch anged to ceftriaxone at admission. Sepsis due to Serratia bacteremia was present at the time of initial ED visit 01/19 causing fever, tachycardia, leukocytosis to 12.3 and mild ischemic hepatitis. Sepsis had resolved when called in to ED 01/20 for admission. Serratia bacteremia from urinary source, recent instrumentation and qureshi catheter. Low grade thus far, 1/ bottles, serratia by molecular assay and irving- sensitive serratia from urine culture 01/19 -continue ceftriaxone today is day 5 of IV antibiotics, plan to continue IV through Thursday then discharge on oral cipro to complete total 14d course, discussed with Dr. Hatfield 01/21 - he will arrange close office follow up -renal ultrasound negative for obstruction -repeat blood cultures for clearance 01/21 - ngtd at 48h -continue tamsulosin and finasteride for BPH (2) Acute UTI (urinary tract infection): Plan: -Serratia -See above (3) Elevated LFTs: Plan: -AST of 79, ALT of 89, Alk phos of 122, total bili WNL -mild ischemic hepatitis in setting of bacteremia/sepsis and underlying hepatic steatosis. - repeat LFTs 01/22 virtually normalized (4) BPH with obstruction/lower urinary tract symptoms: Plan: -Continue Tamsulosin and Finasteride (5) Dyslipidemia: Plan: -Continue statin (6) Hypertension, benign essential, goal below 140/90: Plan: -Stable -Continue Lisinopril Plan DVT prophylaxisenoxaparin Admission and Anticipated Discharge Date Admission Date: January 21, 2024 Subjective continues to do well feels better headache has resolved has had some initial blood with voiding a few times that clears with ongoing stream, no clots in urine Physical Exam Physical Exam: PHYSICAL EXAMINATION Last 24h vital signs reviewed, see documentation in flowsheet 01/23 exam remains normal: General: comfortable appearing, no distress HEENT: Normocephalic, atraumatic, pupils round and equal, sclerae anicteric, no conjunctival injection, moist mucus membranes Lungs: Normal respiratory effort. Clear to auscultation bilaterally. No RRW Heart: Regular rate and rhythm, no murmurs. No JVD Abdomen: Soft, nontender, nondistended. Bowel sounds present. Extremities: Warm, dry, well-perfused. No extremity edema. Neuro: Alert and oriented x 4, face symmetric, moves 4 extremities well Psych: Normal affect and behavior Results & Data Results & Data Vital Signs (Past 12 Hours) Vital Signs Temp Pulse Resp BP Pulse Ox O2 Del Method 01/24/24 07:37 36.9 C 73 16 114/75 94 Room Air PG Care Time/CCT Total # of Minutes Spent Total Time Spent with Patient: Total time spent is greater than 50% in coordination of care (as documented) at patient's floor/unit and/or counseling patient: Coding Level of Care Code 81049 SUB INP/OBS CARE 25MIN Diagnoses Gram-negative bacteremia R78.81 Acute UTI (urinary tract infection) N39.0 Elevated LFTs R79.89 BPH with obstruction/lower urinary tract symptoms N40.1; N13.8 Dyslipidemia E78.5 Hypertension, benign essential, goal below 140/90 I10
--- NOTE | 2024-01-25 17:15 | Discharge Summary ---
Date of Service January 25, 2024 Admission HPI Per Admitting Provider Bladimir Arzola Sr. is a 73 year old male with a PMH significant for BPH with obstruction/lower urinary tract symptoms S/P Photoselective Vaporization of the Prostate Using the Greenlight Laser w/Dr. Hatfield on 01/11/24, DM, HTN, hyperlipidemia, and GERD who presented to the [facility] ED on 01/21/24 after blood cultures obtained on his ED visit on 01/20/24 were found to be positive. The patient initially presented to the [facility] ED on 01/20/24 with fever and chills. Noted to have a leukocytosis of 12, neutrophil predominance of 10, corrected sodium of 133, and UA consistent with infection. He was treated with a dose of ceftriaxone, given 1L NSS, and discharged with a course of Cefdinir. He remained stable in the ED today. Labs were significant for an improved WBC of 9, sodium of 137, crp of 7.87, AST of 79, ALT of 89, alk phos of 122, and procal of 0.41. Urine culture and the patient's Aerobic set of blood cultures were positive for gram negative bacilli. Initial PCR testing is positive for Serratia Marcescens but negative for resistant genes. Prior to admission the patient was given 1L NSS, a dose of Cefepime, and 650 mg PO Tylenol. At the time of the exam the patient was lying in bed in no acute distress. States that he was experiencing subjective fever, chills, and dysuria yesterday which prompted ED arrival. Since receiving Ceftriaxone in the ED last night his symptoms have significant improved. Denies chest pain, SOB, abd pain, nausea, vomiting, diarrhea, hematuria, melena, LE swelling, recent trauma, scrotal or perineal pain. When asked, he does not use tobacco but does drink approximately 2 beers a day. His last drink was approximately 48 hours ago. He denies a previous hx of withdrawal if he stops drinking. He is a full code and his children would be his primary decision makers if he cannot make decisions himself. Principal Diagnosis low-grade Serratia bacteremia related to urinary tract infection Discharge Exam PHYSICAL EXAMINATION Last 24h vital signs reviewed, see documentation in flowsheet 01/24 exam remains normal: General: comfortable appearing, no distress HEENT: Normocephalic, atraumatic, pupils round and equal, sclerae anicteric, no conjunctival injection, moist mucus membranes Lungs: Normal respiratory effort. Clear to auscultation bilaterally. No RRW Heart: Regular rate and rhythm, no murmurs. No JVD Abdomen: Soft, nondistended. Bowel sounds present. Extremities: Warm, dry, well-perfused. No extremity edema. Neuro: Alert and oriented x 4, face symmetric, moves 4 extremities well Psych: Normal affect and behavior Discharge Data Allergies Allergy/AdvReac Type Severity Reaction Status Date / Time indomethacin AdvReac Intermediate n/v Verified 01/21/24 17:33 Consultations 01/21/24 16:42 ED Decision to Admit Stat Ordered Studies 01/22/24 US renal/blad retro comp Stat Renal Ultrasound 01/22/24 00:00 RENAL ULTRASOUND HISTORY: UTI, hematuria COMPARISON: Renal ultrasound 09/25/2023. FINDINGS: Right kidney: 11.8 cm. No hydronephrosis. Normal corticomedullary differentiation and cortical thickness. Left kidney: 11.0 cm. No hydronephrosis. Normal corticomedullary differentiation and cortical thickness. Bladder: Diffusely thickened and underdistended. The ureteral jets were not identified. IMPRESSION: 1. Normal kidneys. No hydronephrosis. 2. Diffusely thickened bladder which is underdistended. This could be due to chronic outlet obstruction or an underlying cystitis. Recommend correlation with urinalysis. ACT 112: Negative or not required by law. Electronically signed by: Roberto Dasilva M.D. 01/22/2024 9:15 AM 01/23/24 05:29 01/23/24 05:29 Hospital Course (1) Gram-negative bacteremia: 73 y/o with BPH with LUTS who underwent greenlight vaporization of the prostate by Dr. Hatfield on 01/10. Had 5d prophylaxis with cephalexin following procedure. Qureshi removed 01/17 or . Presented to ED 01/19 with fever/chills, treated in ED for UTI with ceftriaxone, discharged on po cefdinir. 01/20 called back to ED for positive blood culture. Given dose of cefepime in ED then changed to ceftriaxone at admission. Sepsis due to Serratia bacteremia was present at the time of initial ED visit 01/19 causing fever, tachycardia, leukocytosis to 12.3 and mild ischemic hepatitis. Sepsis had resolved when called in to ED 01/20 for admission. Serratia bacteremia from urinary source, recent instrumentation and qureshi catheter. Low grade thus far, 08/27 bottles, serratia by molecular assay and irving- sensitive serratia from urine culture 01/19 - treated with IV ceftriaxone for 6 days until blood cultures proved to be cleared, discharged on oral cipro to complete total 14d course, discussed with Dr. Hatfield 01/21 - he will arrange close office follow up -renal ultrasound negative for obstruction -repeat blood cultures for clearance 01/21 - ngtd at 72h -continue tamsulosin and finasteride for BPH (2) Acute UTI (urinary tract infection): -Serratia -See above (3) Elevated LFTs: -AST of 79, ALT of 89, Alk phos of 122, total bili WNL -mild ischemic hepatitis in setting of bacteremia/sepsis and underlying hepatic steatosis. - repeat LFTs 01/22 virtually normalized (4) BPH with obstruction/lower urinary tract symptoms: -Continue Tamsulosin and Finasteride (5) Dyslipidemia: -Continue statin (6) Hypertension, benign essential, goal below 140/90: -Stable -Continue Lisinopril Total Time Total Time Spent Total Time Spent (In Minutes): <30 minutes Discharge Plan Discharge Items Patient Disposition: Home - Self-Care Reason For Visit: GRAM NEGATIVE BACTEREMIA, UTI Discharge Diagnosis: Serratia marcescens bacteremia due to UTI Activity: Resume your previous activity Non-emergency contact: Primary Care Provider and Urologist Call non-emergency contact if: you have any medication questions, your symptoms worsen and you have a fever Follow-up/Referrals: Bobbi Gonzalez MD [Primary Care Provider] - 02/01/24 10:20 am Jose Hatfield DO [Physician] - 02/02/24 1:45 pm (Appointment will be with Pat Johnson PA-C) Diet: Regular Addtl Attending Provider Instructions: You were treated with 6 days IV antibiotics for low-grade bloodstream infection from UTI with bacteria called Serratia -keep taking oral cipro for 8 more days starting tomorrow - this completes a total 14d course of antibiotics -call Dr. Hatfield's office and schedule an appointment within 1-2 weeks Antibiotics like cipro are best for bloodstream/urinary infection but carry some risks to know about -take probiotic (over the counter) to prevent antibiotic associated diarrhea -seek medical evaluation if you have severe diarrhea, especially with abdominal pain or fever, within the next 6 months -associated with possible tendon inflammation and rare cases of tendon rupture - stop cipro and call your doctor if you get pain in tendons - like shoulder or heel (Achilles) pain - this effect can persist for a few months Pending Studies at Discharge: Yes Stand-Alone Forms: [facility] [employer], Smoking Cessation Medications and DC Order Prescriptions: New ciprofloxacin HCl 500 mg tablet 500 mg PO BID Qty: 16 0RF Continued allopurinol 300 mg tablet 300 mg PO QAM metformin 1,000 mg tablet 1,000 mg PO BID tadalafil 5 mg tablet 5 mg PO DAILY PRN (Reason: sexual activity) Qty: 30 0RF Rx Instructions: administer approximately 30min before sexual activity; do not use more than 1 dose per 24hrs finasteride 5 mg tablet 5 mg PO HS lisinopril 5 mg tablet 2.5 mg PO QAM aspirin 325 mg tablet 325 mg PO QAM atorvastatin 10 mg tablet 10 mg PO HS gabapentin 400 mg capsule See Rx Instructions .ROUTE .COMPLEX Patient Comments: 400mg qam/800mg hs Rx Instructions: TAKES 400mg in am; 800mg at night (DME) blood-glucose meter,continuous Misc See Rx Instructions .Route Qty: 1 0RF Rx Instructions: As directed insulin glargine [Lantus Solostar U-100 Insulin] 100 unit/mL (3 mL) Insulin Pen 22 unit SUBCUT HS tamsulosin 0.4 mg capsule 0.4 mg PO HS cholecalciferol (vitamin D3) 1,000 unit capsule 1,000 units PO HS famotidine [Pepcid] 20 mg Tablet 20 mg PO DAILY PRN (Reason: gerd) multivitamin Tablet 1 tab PO DAILY Ozempic 2 mg/dose (8 mg/3 mL) Pen Injector 2 mg SUBCUT WK Rx Instructions: WEDNESDAYS Discontinued cefdinir 300 mg capsule 300 mg PO BID 7 Days Qty: 14 0RF Rx Instructions: STARTED 01/20/24 FOR 7 DAYS Discharge Orders: Discharge Order (Routine); Ordered 01/25/24 Ordered By: Gaby Harris/Other Patient Handouts: Anatomy of the Male Urinary Tract, UTIs Admission Data Admit Date/Time: 01/21/24 17:26 Attending Provider: Alberta,Gaby E Admit Provider: Madonna Ac Primary Care Provider: Bobbi Gonzalez Other Providers: Madonna Ac Other Interventions: Discharge Summary Assessment (RN) Last Done: 01/25/24 12:21 Coding Level of Care Code 71482 IN/OBS DISCH 30 MIN/LESS Diagnoses Gram-negative bacteremia R78.81 Acute UTI (urinary tract infection) N39.0 Elevated LFTs R79.89 BPH with obstruction/lower urinary tract symptoms N40.1; N13.8 Dyslipidemia E78.5 Hypertension, benign essential, goal below 140/90 I10
== END 2024-01-25 14:35 | disposition home or self-care (01) | DRG 872 ==
LOC: ED 14:08 → SUATTDRO 17:26 → 2W 17:26 → 3E 01-23 15:52